=== PATIENT | male | born 1930 | race African-American/Black ===

== ENCOUNTER 2018-03-12 14:27 | Inpatient (IN) | payer MEDICARE, OTHER ==
[~2018-03-12] VITALS: Ht 177.8 cm; Wt 53.2 kg
[~2018-03-12 14:27] MED LIST: FINASTERIDE5 MG ORAL; FLOMAX0.4 MG ORAL; LIPITOR40 MG ORAL; LOPRESSOR HCT1 EAC3 ORAL; NORCO 10-325 T1 EACH ORAL; NORVASC10 MG ORAL; PLAVIX300 MG ORAL; UNOBMED
[2018-03-12 20:00] VITALS: BP 159/82
[2018-03-12] MEDS ORDERED: Zolpidem 5mg tab ORAL PRN (23:30)
[2018-03-12] MEDS ORDERED: LORazepam 1mg tab ORAL PRN (23:30)
[2018-03-12] MEDS: HYDROcodone/Acetamin 10/325 tab ORAL PRN (23:38)
[2018-03-13] VITALS: BP 157/88
[2018-03-13 01:59] LABS: HEMOGLOBIN 7.3 G/DL (14.2-18.0); MEAN CORPUSCULAR VOLUME 83 FL (80-99); PLATELET COUNT 415 K/UL (150-450); RED BLOOD COUNT 2.64 M/UL (4.70-6.10); RED CELL DISTRIBUTION WIDTH 17.3 % (11.6-14.8); WHITE BLOOD COUNT 13.1 K/UL (4.8-10.8)
[2018-03-13 02:32] LABS: ALANINE AMINOTRANSFERASE 16 U/L (12-78); ALBUMIN 1.9 G/DL (3.4-5.0); ALKALINE PHOSPHATASE 134 U/L (46-116); ANION GAP 9 mmol/L (5-15); ASPARTATE AMINO TRANSFERASE 63 U/L (15-37); BILIRUBIN,DIRECT 0.2 MG/DL (0.0-0.3); BILIRUBIN,TOTAL 0.3 MG/DL (0.2-1.0); BLOOD UREA NITROGEN 85 mg/dL (7-18); CALCIUM 8.6 MG/DL (8.5-10.1); CARBON DIOXIDE 23 MMOL/L (21-32); CHLORIDE 104 MMOL/L (98-107); CREATININE 3.9 MG/DL (0.55-1.30); POTASSIUM 5.7 MMOL/L (3.5-5.1); SODIUM 136 MMOL/L (136-145)
[2018-03-13 04:00] VITALS: BP 149/78
[2018-03-13 07:12] LABS: BASOPHILS % (AUTO) 1.1 % (0.0-2.0); EOSINOPHILS % (AUTO) 0.9 % (0.0-3.0); HEMOGLOBIN 8.5 G/DL (14.2-18.0); LYMPHOCYTES % (AUTO) 26.7 % (20.0-45.0); MEAN CORPUSCULAR VOLUME 84 FL (80-99); NEUTROPHILS % (AUTO) 66.3 % (45.0-75.0); PLATELET COUNT 486 K/UL (150-450); RED BLOOD COUNT 2.99 M/UL (4.70-6.10); RED CELL DISTRIBUTION WIDTH 17.1 % (11.6-14.8)
[2018-03-13 07:18] LABS: ANION GAP 11 mmol/L (5-15); BLOOD UREA NITROGEN 85 mg/dL (7-18); CALCIUM 9.2 MG/DL (8.5-10.1); CARBON DIOXIDE 21 MMOL/L (21-32); CHLORIDE 106 MMOL/L (98-107); CREATININE 3.8 MG/DL (0.55-1.30); SODIUM 138 MMOL/L (136-145)
[2018-03-13 07:42] LABS: POTASSIUM 6.4 MMOL/L (3.5-5.1)
[2018-03-13 08:00] VITALS: BP 152/85
[2018-03-13] MEDS: HYDROcodone/Acetamin 10/325 tab ORAL PRN ×3 (09:02→23:26)
[2018-03-13] MEDS: Metoprolol Succinate XL 50mg tab ORAL SCH (09:03)
--- NOTE | 2018-03-13 10:57 | Consultation ---
DATE OF CONSULTATION: 03/12/2018 CARDIOLOGY CONSULTATION CONSULTING PHYSICIAN: Jose Low M.D. REQUESTING PHYSICIAN: Justice Pereira M.D. REASON FOR CONSULTATION: Paroxysmal atrial fibrillation and edema. HISTORY OF PRESENT ILLNESS: This is an 88-year-old male with a longstanding history of hypertensive heart disease and paroxysmal atrial fibrillation. He has done poorly over the past few months with almost a 20-pound weight loss accompanied by increasing fluid retention mostly in the lower half of his body including the abdomen. He has noted some decreasing exercise capacity. No orthopnea, but possible shortness of breath. He has not had chest pain or palpitations. He has been compliant with medications. He was also noted to have abnormal ultrasound revealed nodular densities of his liver and failed to follow up several months ago with a CAT scan requested. I have been asked to assist with further cardiovascular care and volume management. 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 ALLERGIES: None. MEDICATIONS: Reviewed and reconciled. SOCIAL HISTORY: Notable for distant history of alcohol and substance abuse as well as smoking history. FAMILY HISTORY: Noncontributory. REVIEW OF SYSTEMS: Recent echocardiogram revealed normal ejection fraction, concentric hypertrophy, diastolic relaxation abnormality, and minimal degenerative valve disease. Atrial fibrillation has been rate controlled with a beta karla. He has not been on anticoagulation due to prior bleeding per rectum and fall risk. There is no history of seizure or stroke. Diabetes is diet controlled. He does have chronic back and leg pain due to his degenerative disk disease and prior fracture with ester placement. His blood pressure in the past has been labile. There is no history of flow-limiting coronary disease. He has a history of COPD, but has not had any recent exacerbation. There is no history of visual disturbance, retinopathy, or hearing loss. There is no history of prostate cancer. He does have prostatic hypertrophy. His weight loss has been due to poor appetite. No nausea or vomiting. It is noted he was recently found to have some abnormalities on his abdominal ultrasound and was referred for a CAT scan several months ago that has not been performed yet. PHYSICAL EXAMINATION: VITAL SIGNS: Blood pressure 159/82, pulse 92, respirations 20, and afebrile. HEENT: Conjunctivae pink. Arcus senilis. Sclerae anicteric. Oropharynx clear. NECK: Supple. Jugular venous pressure normal. There is temporal wasting. LUNGS: Diminished breath sounds. Chest wall without deformity. CARDIAC: Regular rhythm and rate. Normal S1, S2 with a fourth heart sound. ABDOMEN: Soft, distended. Mild hepatomegaly, mild ascites. EXTREMITIES: With trace dependent edema. Palpable distal pulses. NEUROLOGIC: Nonfocal. SKIN: Intact. LABORATORY DATA: Labs and EKG are pending. IMPRESSION: This is a gentleman with significant weight loss, liver nodularity, and ascites, who presents with failure to respond to outpatient management. Further complicating his history includes type 2 diabetes mellitus, hypertensive heart disease, osteoarthritis and degenerative disk disease, COPD, prostatic hypertrophy with history of urinary retention. PLAN: Recommend hold parameters for antihypertensives. Hold antiplatelets for now in case biopsies required. A CAT scan of the chest, abdomen, and pelvis. Check liver function tests, coagulation parameters, and CBC. Nutritional support. Further recommendations will follow once diagnostic laboratory studies are obtained and EKG is reviewed. Jose Low M.D. DR: ERIKA JOB#: [id number] CC:
[2018-03-13 12:00] VITALS: BP 143/77
[2018-03-13] MEDS ORDERED: Sodium Polystyrene Sulfonate 15gm Powder ORAL SCH (14:09)
[2018-03-13 16:00] VITALS: BP 148/86
--- NOTE | 2018-03-13 16:42 | Diagnostic Imaging Report ---
INDICATION: Abdominal distention, chest pain, atrial fibrillation, fluid retention, decreased exercise capacity TECHNIQUE: No IV contrast, per referring physician request. Patient ingested oral contrast. Spiral acquisitions obtained through the chest, abdomen, and pelvis. Multiplanar reconstructions were generated. Total dose length product 694.5 mGycm. CTDIvol(s) 10.54 mGy. Radiation dose was minimized using automated exposure control COMPARISON: Abdomen and pelvis compared to 03/31/2016. No comparison chest CTs FINDINGS Chest: Lungs demonstrate bullous changes bilaterally, predominantly in the upper lobes, as well as generalized hyperinflation. There is trace pleural fluid on the left. Some focal pleural thickening is seen along the superior aspect of the left major fissure. Some scarring is seen at both lung apices. There is a mass in the left upper lobe which is contiguous with the left heart border. This measures 3.9 x 1.9 x 2.3 cm. There is some peripheral pleural scarring in the right upper lobe. There are reticular opacities in the periphery of the right upper lobe which most likely represent scarring. 4 mm irregular opacity in the right upper lobe is seen on image 43 of series 5. Considerable scarring is seen at the right lung base. 4 mm irregular nodular opacity is seen within the right middle lobe, image 75 of series 5, and a few 10 mm opacities are seen at the right lung base. The heart is enlarged. No definite pericardial effusion. A somewhat prominent but not frankly enlarged node is seen in the pericardial fat adjacent to the proximal left pulmonary hilum. No definite mediastinal or hilar mass or adenopathy otherwise. However, multiple nodules are seen in the left paraspinous posterior mediastinum as well as in the left-sided extrapleural flat and adjacent to the distal descending thoracic aorta. The largest of these masses measures 2.7 cm long axis dimension, is located adjacent to the lower thoracic spine. The right main pulmonary artery is ectatic, measuring 29 mm in diameter. The left main pulmonary artery is also ectatic, measuring 28 mm in diameter. The thyroid is heterogeneous, demonstrates an 9 mm nodule in the left lobe. No axillary or chest wall mass or adenopathy demonstrated. The bones demonstrate degenerative spondylosis changes. Again demonstrated a focal outpouching of the distal esophagus, which contains contrast and air, most likely an epiphrenic diverticulum. There is equivocal thickening of the esophageal wall distal to this. Abdomen pelvis: There is massive dilatation of the left proximal ureter. There is what appears to be a mass occupying or surrounding the mid to distal left ureter which measures 4 cm transverse by 3.7 cm AP by 3.7 cm craniocaudad, not evident previously. However, distal to this, the ureter continues to be dilated, and continues into an area of saccular dilatation, distal to which there appears to be a 2.3 cm mass occupying the lumen. The ureteral dilatation continues into the ureterovesical junction. The bladder is markedly thick-walled. In addition to the massive hydroureter, there is massive hydronephrosis. This is more severe than on the prior exam. There is a 2.5 cm mass adjacent to or arising from the posterior medial left kidney interpolar region. There is evidence of prior TURP. The prostate is considerably smaller than demonstrated previously. Previously demonstrated right hydroureter and hydronephrosis have resolved. In addition to the lesions above-described, there are multiple masses seen throughout the retroperitoneum and peritoneal space. Multiple masses are seen surrounding the right kidney, largest located medially measuring 2.5 cm diameter. Multiple masses are seen medial to the left kidney, largest measuring 4.4 cm long axis dimension. A conglomerate of enlarged retroperitoneal lymph nodes is demonstrated, lateral to the abdominal aorta, measuring 6.5 x 3.6 cm. Numerous masses are seen within the mesenteric root. The extent of the mesenteric involvement is somewhat hard to detail as there are also numerous unopacified small bowel loops which are hard to distinguish from the masses. There is no evidence of small bowel obstruction. Most of the ingested contrast is seen within the colon. There is some residual within the stomach. Contrast is seen as far distally as the distal descending colon. There is trace free intraperitoneal fluid, over the dome of the liver and within the pelvis. There is equivocal wall thickening of the gastric fundus, probably an artifact of under distention. The duodenum is unremarkable. The liver demonstrates multiple low-attenuation masses throughout, measuring up to 7 cm long axis dimension. The gallbladder demonstrates equivocal surrounding edema. No gallstones. No biliary ductal dilatation. The pancreas, spleen are unremarkable. Low-attenuation 2.4 x 1 cm mass is seen in the right adrenal, demonstrating attenuation below 10 Hounsfield units. A large mass is seen either within or adjacent to the left adrenal. The bones are unremarkable except for degenerative spondylosis changes. Impression: Evidence of extensive disseminated neoplasm, located predominantly below the diaphragm. Multiple masses are seen throughout the liver. Multiple nodules and masses are seen throughout the retroperitoneum and mesenteric root, within the pelvis, and in the lower thoracic paraspinal fat and left posterior extrapleural space, as well as possibly the left adrenal. Unsure as to the primary lesion based on the available findings 3.9 x 1.9 x 1 2.3 cm mass in the left lung upper lobe. This could represent a metastatic deposit, but given the absence of other significant pulmonary lesions is likely represent a primary lesion. Massive left hydronephrosis and hydroureter. Likely due to multiple masses which appear to be within the ureteral lumen Since 03/31/2016, interim resolution of previously demonstrated right hydronephrosis Evidence of bullous COPD Other opacities within the lungs, most likely postinflammatory in nature although neoplasm is etiology not completely excludable. Cardiomegaly Ectatic pulmonary arteries, suggestive of although not conclusive for pulmonary tail hypertension 9 mm left thyroid nodule. 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
[2018-03-13 20:00] VITALS: BP 176/85
--- NOTE | 2018-03-13 21:46 | History and Physical Report ---
DATE OF ADMISSION: 03/12/2018 CHIEF COMPLAINT: Failure to thrive, significant weight loss and renal failure. HISTORY OF PRESENT ILLNESS: The patient is an 88-year-old male, well known to me. He has a history of chronic kidney disease, obstructive uropathy, hypertension, hypertensive heart disease, paroxysmal atrial fibrillation over the last several months. He has had nearly 20-30 pounds weight loss. According to the patient, he has had a poor appetite. He notes decreased exercise tolerance. He has had no fevers or chills. Denies any melena. No bright red blood per rectum. No constipation. He saw his cooking chef on the day of admission in light of his significant weight loss. He is now admitted for further evaluation and care. PAST MEDICAL HISTORY: As above. He has a history of diabetes, chronic kidney disease, COPD, GERD, hypertension and hypertensive heart disease. CURRENT MEDICATIONS: Reconciled and reviewed. ALLERGIES: None. FAMILY HISTORY: None. SOCIAL HISTORY: There is no known history of tobacco, ethanol, or drugs. REVIEW OF SYSTEMS: GENERAL: Positive malaise, weakness, or weight loss. HEENT: No headaches or visual changes. CARDIOPULMONARY: No chest pain. No shortness of breath. GASTROINTESTINAL: No nausea or vomiting. GENITOURINARY: No urgency or frequency. MUSCULOSKELETAL: No joint pain or swelling. NEUROLOGIC: No evidence of seizures. PHYSICAL EXAMINATION: GENERAL: The patient is a chronically ill-appearing male. He is cachectic and has some temporal wasting. VITAL SIGNS: Temperature 98 degrees, pulse 87, respirations 20, and blood pressure 150/85. NECK: Supple. There is no adenopathy. HEART: Regular rate and rhythm. LUNGS: Clear. ABDOMEN: Soft, nontender and nondistended. EXTREMITIES: No clubbing, cyanosis, or edema. LABORATORY AND DIAGNOSTIC DATA: Coagulations are normal. White count was 13, hemoglobin 7.3, hematocrit 22 and platelets 415. Sodium 136, potassium 5.7, chloride 104, bicarbonate 23, BUN 85, and creatinine 3.9. TSH was 4.56. CEA and CA-[address] scan of the abdomen and pelvis show an enlarged prostate, bladder outlet obstruction with marked dilation of the urinary bladder, moderate bilateral hydronephrosis, and bilateral adrenal masses. Chest x-ray was clear. MRI of the brain showed only mild atrophy. ASSESSMENT: This is a pleasant male admitted with complaints of failure to thrive, unclear etiology, may be the result of acute on chronic renal failure. He has some hydronephrosis and bladder outlet obstruction, probably likely due to his BPH, anemia, hyperkalemia, hypertension, and atrial fibrillation. PLAN: Insert Garcia catheter. Cautious fluid resuscitation. Cardiology follow up. We will follow up tumor markers. Kayexalate for hyperkalemia. The patient's status is currently guarded. Justice Pereira M.D. DR: MELY JOB#: [id number] CC:
[2018-03-13] MEDS: Tamsulosin 0.4mg cap ORAL SCH (23:26)
[2018-03-14] VITALS: BP 124/86
--- NOTE | 2018-03-14 00:32 | Consultation ---
DATE OF CONSULTATION: 03/13/2018 CONSULTING PHYSICIAN: Shayan Resendiz M.D. REFERRING PHYSICIAN: Jose Low M.D. REASON FOR CONSULTATION: hydronephrosis. HISTORY OF PRESENT ILLNESS: This is an 88-year-old gentleman. He is well known to me from previous evaluations. The patient has history of BPH and history of urinary retention. He has history of chronic renal insufficiency. He does have history of chronic left-sided hydronephrosis. He is status post transurethral resection of prostate, which was performed in August 2016. At that time, the pathology from the resection was negative for cancer. He has been admitted to the hospital because of atrial fibrillation and edema. He was noted to have acute kidney injury, left-sided hydronephrosis, and metastatic adenopathy. Urology evaluation was requested. Apparently, the patient has had some weight loss in the recent past. He has been voiding. PAST MEDICAL HISTORY: Significant for above, also history of coronary artery disease, hypertension, degenerative disk disease, hyperlipidemia, diabetes, osteoarthritis, COPD. PAST SURGICAL HISTORY: As above. CURRENT MEDICATIONS: Here in the hospital, the patient is on Flomax, Proscar, Toprol, Ativan, Zofran, Ambien, [place]. ALLERGIES: No known drug allergies. SOCIAL HISTORY: He is currently nonsmoker. REVIEW OF SYSTEMS: As above. FAMILY HISTORY: Noncontributory. PHYSICAL EXAMINATION: GENERAL: An elderly male. VITAL SIGNS: Temperature is 97.0 degrees, blood pressure is 152/85, pulse 87, respirations 20. HEENT: Normocephalic. NECK: Supple. ABDOMEN: Soft. EXTREMITIES: No clubbing or cyanosis. LABORATORY DATA: BUN is 85, creatinine is 3.8. I believe his baseline creatinine is close to about 3 or so. Potassium 6.4. There is no recent urinalysis. DIAGNOSTIC IMAGING STUDIES: The patient had CT scan of the abdomen and pelvis, there was mention of extensive disseminated neoplasm with masses in the liver, nodules in the retroperitoneum, there was mention of a mass in the left upper lung lobe, there was evidence of massive left-sided hydronephrosis, possible mass in the lumen of the ureter, there was also mention of a right adrenal adenoma. His old imaging was reviewed and there was previous mention of a renal cyst. IMPRESSION: 1. Left-sided hydronephrosis which is chronic. 2. BPH history. 3. Renal insufficiency which appears to be acute on chronic. 4. Renal cyst history. 5. Adrenal adenoma. PLAN AND DISCUSSION: Again, the patient does have left-sided hydronephrosis which he has had in the past. In fact, he had done ultrasound a number of months ago in the office and previous imaging which he had which had shown left-sided hydronephrosis because of his previous bladder outlet obstruction and reflux. There may have been some exacerbation of the hydronephrosis. His renal function will be monitored closely. Apparently, there was a bladder scan that was done earlier, which did not show significant residual urine, however, we can consider placing a Garcai for volume measurement and I's and O's. Again, the patient will be monitored closely. At some point, he may need to have retrograde study. Thank you Dr. Low for asking to see me this patient in consultation. Shayan Resendiz M.D. DR: Abraham JOB#: [id number] CC:
[2018-03-14] MEDS ORDERED: HydrALAZINE 25mg tab ORAL PRN (03:15)
[2018-03-14 04:00] VITALS: BP 129/89
--- NOTE | 2018-03-14 05:31 | Progress Note ---
DATE: 03/13/2018 CARDIOLOGY PROGRESS NOTE SUBJECTIVE: The patient's CT scan was reviewed and discussed with Dr. Pereira and is clearly diagnostic for metastatic carcinoma, primary source remains unclear of the lung and renal sources are most probable. The findings were discussed with the patient. His sensorium is somewhat depressed and he does not seem to respond clearly to my questions. Blood pressure is labile up to 176 systolic at times. The patient has not been voiding well and he has had elevated post void residuals. OBJECTIVE: VITAL SIGNS: Blood pressure 176/85, pulse 85, respirations 20, and afebrile. LUNGS: Few rhonchi. HEENT: Temporal wasting. HEART: Regular rhythm and rate. Normal S1 and S2 with a fourth heart sound. ABDOMEN: Soft. Mild ascites. EXTREMITIES: No edema. LABORATORY DATA: Reviewed. IMPRESSION: 1. Metastatic carcinoma. 2. Metabolic encephalopathy. 3. Hyperkalemia. 4. Acute on chronic kidney injury. 5. Obstructive uropathy. 6. Acute on chronic renal failure. 7. Accelerated hypertension. PLAN: 1. Discontinue benzodiazepine. 2. Check ammonia level. 3. Urology consultation. 4. P.r.n. antihypertensives for blood pressure spikes. 5. Consider needle biopsy if feasible per interventional radiologist. 6. Consider CT imaging of the brain if no other etiology for encephalopathy sounds. We will try to contact family members and we will need to address advanced directives. The patient is able to participate in more meaningfully in such a discussion. Jose Low M.D. : NONA JOB#: [id number] CC:
[2018-03-14 06:48] LABS: HEMATOCRIT 22.5 % (42.0-52.0); HEMOGLOBIN 7.3 G/DL (14.2-18.0); MEAN CORPUSCULAR VOLUME 84 FL (80-99); PLATELET COUNT 407 K/UL (150-450); RED BLOOD COUNT 2.67 M/UL (4.70-6.10); RED CELL DISTRIBUTION WIDTH 17.8 % (11.6-14.8); WHITE BLOOD COUNT 13.1 K/UL (4.8-10.8)
[2018-03-14 07:22] LABS: ALANINE AMINOTRANSFERASE 17 U/L (12-78); ALBUMIN 1.7 G/DL (3.4-5.0); ALBUMIN/GLOBULIN RATIO 0.3 (1.0-2.7); ALKALINE PHOSPHATASE 126 U/L (46-116); ANION GAP 11 mmol/L (5-15); ASPARTATE AMINO TRANSFERASE 62 U/L (15-37); BILIRUBIN,TOTAL 0.2 MG/DL (0.2-1.0); BLOOD UREA NITROGEN 74 mg/dL (7-18); CALCIUM 8.3 MG/DL (8.5-10.1); CARBON DIOXIDE 20 MMOL/L (21-32); CHLORIDE 108 MMOL/L (98-107); CREATININE 3.1 MG/DL (0.55-1.30); POTASSIUM 4.6 MMOL/L (3.5-5.1); SODIUM 139 MMOL/L (136-145)
--- NOTE | 2018-03-14 07:34 | Urology Progress Note ---
Assessment/Plan Assessment/Plan 1. Left-sided hydronephrosis which is chronic. 2. BPH history. 3. Renal insufficiency which appears to be acute on chronic. 4. Renal cyst history. 5. Adrenal adenoma. monitor clinically monitor renal fxn, improved gore indwelling for now films reviewed add abx med/onc eval Subjective Allergies: Coded Allergies: No Known Allergies (Verified , 04/29/09) Subjective all noted, feels fair, gore placed last night, 250 cc residual by report, vague testicular pain Objective Last 24 Hour Vital Signs Date Time Temp Pulse Resp B/P (MAP) Pulse Ox O2 Delivery O2 Flow Rate FiO2 03/14/18 04:00 97.7 96 18 129/89 (102) 94 97.7 03/14/18 00:25 97.0 03/14/18 00:00 97.8 94 18 124/86 (99) 98 97.8 03/13/18 23:26 97.0 03/13/18 21:00 Room Air 03/13/18 20:00 97.0 85 20 176/85 (115) 98 97.0 03/13/18 17:41 97.0 03/13/18 16:00 98.4 88 20 148/86 (106) 97 98.4 03/13/18 12:00 98.2 84 20 143/77 (99) 97 98.2 03/13/18 09:47 Room Air 03/13/18 09:03 87 150/85 03/13/18 09:02 97.0 03/13/18 08:00 97.9 87 20 152/85 (107) 97 97.9 Intake and Output 03/13/18 03/14/18 19:00 07:00 Intake Total 450 ml Output Total 600 ml Balance -150 ml Tube Feeding 450 ml Output Urine Total 600 ml # Voids 4 # Bowel Movements 2 Current Medications Medications (Trade) Dose Ordered Sig/Faizan Route PRN Reason Start Time Stop Time Status Last Admin Dose Admin Acetaminophen/ Hydrocodone Bitart ([place]coe 10/325) 1 tab Q4H PRN ORAL For Pain 03/12/18 23:15 03/19/18 23:14 03/13/18 23:26 Amlodipine Besylate (Norvasc) 5 mg DAILY ORAL 03/14/18 09:00 04/13/18 08:59 Barium Sulfate (Readi-Cat 2) 450 ml NOW PRN ORAL Radiology Procedure 03/13/18 10:15 03/15/18 10:07 Finasteride (Proscar) 5 mg DAILY ORAL 03/13/18 09:00 04/12/18 08:59 03/13/18 09:02 Hydralazine HCl (Apresoline) 25 mg Q6HR PRN ORAL SBP above 160 03/14/18 03:15 04/13/18 03:14 Metoprolol Succinate (Toprol XL) 50 mg DAILY ORAL 03/13/18 09:00 04/12/18 08:59 03/13/18 09:03 Ondansetron HCl (Zofran) 4 mg Q6H PRN IVP Nausea & Vomiting 03/12/18 23:30 04/11/18 23:29 Sodium Chloride 1,000 ml @ 100 mls/hr Q10H IV 03/13/18 03:30 04/12/18 03:29 03/13/18 15:17 Tamsulosin HCl (Flomax) 0.4 mg BEDTIME ORAL 03/13/18 21:00 04/12/18 20:59 03/13/18 23:26 Zolpidem Tartrate (Ambien) 5 mg HSPRN PRN ORAL Insomnia 03/12/18 23:30 03/19/18 23:29 Laboratory Tests 03/14/18 06:20: White Blood Count 13.1H, Red Blood Count 2.67L, Hemoglobin 7.3L, Hematocrit 22.5L, Mean Corpuscular Volume 84, Mean Corpuscular Hemoglobin 27.3, Mean Corpuscular Hemoglobin Concent 32.4, Red Cell Distribution Width 17.8H, Platelet Count 407, Mean Platelet Volume 4.4L, Neutrophils (%) (Auto) , Lymphocytes (%) (Auto) , Monocytes (%) (Auto) , Eosinophils (%) (Auto) , Basophils (%) (Auto) , Neutrophils % (Manual) [Pending], Lymphocytes % (Manual) [Pending], Platelet Estimate [Pending], Platelet Morphology [Pending], Sodium Level 139, Potassium Level 4.6, Chloride Level 108H, Carbon Dioxide Level 20L, Anion Gap 11, Blood Urea Nitrogen 74H, Creatinine 3.1H, Estimat Glomerular Filtration Rate , Glucose Level 103, Calcium Level 8.3L, Total Bilirubin 0.2, Aspartate Amino Transf (AST/SGOT) 62H, Alanine Aminotransferase (ALT/SGPT) 17, Alkaline Phosphatase 126H, Ammonia 24, Total Protein 6.6, Albumin 1.7L, Globulin 4.9, Albumin/Globulin Ratio 0.3L Height (Feet): 5 Height (Inches): 10.00 Weight (Pounds): 117 Objective exam stable, gore indwelling, grossly yellow urine, mild testicular tenderness to palpation ALISON FUENTES Mar 14, 2018 07:34
[2018-03-14 08:00] VITALS: BP 144/90
--- NOTE | 2018-03-14 08:32 | General Progress Note ---
Assessment/Plan Problem List: (1) Anemia ICD Codes: D64.9 - Anemia, unspecified SNOMED: 432249711 (2) Atrial fibrillation ICD Codes: I48.91 - Unspecified atrial fibrillation SNOMED: 67856335 (3) Hyperkalemia ICD Codes: E87.5 - Hyperkalemia SNOMED: 55631483 (4) Renal failure ICD Codes: N19 - Unspecified kidney failure SNOMED: 24546047 Status: stable, progressing Assessment/Plan ivf gore transfuse follow up tumor markers monitor volume status and renal fxn Subjective ROS Limited/Unobtainable: No Constitutional: Reports: malaise, weakness HEENT: Reports: no symptoms Cardiovascular: Reports: no symptoms Respiratory: Reports: no symptoms Gastrointestinal/Abdominal: Reports: no symptoms Genitourinary: Reports: no symptoms Neurologic/Psychiatric: Reports: no symptoms Endocrine: Reports: no symptoms Hematologic/Lymphatic: Reports: anemia Allergies: Coded Allergies: No Known Allergies (Verified , 04/29/09) All Systems: reviewed and negative except above Subjective no events. +gore. Cr rending down. on ivf. decreased h/h noted. no bleeding. Objective Last 24 Hour Vital Signs Date Time Temp Pulse Resp B/P (MAP) Pulse Ox O2 Delivery O2 Flow Rate FiO2 03/14/18 04:00 97.7 96 18 129/89 (102) 94 97.7 03/14/18 00:25 97.0 03/14/18 00:00 97.8 94 18 124/86 (99) 98 97.8 03/13/18 23:26 97.0 03/13/18 21:00 Room Air 03/13/18 20:00 97.0 85 20 176/85 (115) 98 97.0 03/13/18 17:41 97.0 03/13/18 16:00 98.4 88 20 148/86 (106) 97 98.4 03/13/18 12:00 98.2 84 20 143/77 (99) 97 98.2 03/13/18 09:47 Room Air 03/13/18 09:03 87 150/85 03/13/18 09:02 97.0 Intake and Output 03/13/18 03/14/18 19:00 07:00 Intake Total 450 ml Output Total 600 ml Balance -150 ml Tube Feeding 450 ml Output Urine Total 600 ml # Voids 4 # Bowel Movements 2 Laboratory Tests 03/14/18 06:20: White Blood Count 13.1H, Red Blood Count 2.67L, Hemoglobin 7.3L, Hematocrit 22.5L, Mean Corpuscular Volume 84, Mean Corpuscular Hemoglobin 27.3, Mean Corpuscular Hemoglobin Concent 32.4, Red Cell Distribution Width 17.8H, Platelet Count 407, Mean Platelet Volume 4.4L, Neutrophils (%) (Auto) , Lymphocytes (%) (Auto) , Monocytes (%) (Auto) , Eosinophils (%) (Auto) , Basophils (%) (Auto) , Neutrophils % (Manual) [Pending], Lymphocytes % (Manual) [Pending], Platelet Estimate [Pending], Platelet Morphology [Pending], Sodium Level 139, Potassium Level 4.6, Chloride Level 108H, Carbon Dioxide Level 20L, Anion Gap 11, Blood Urea Nitrogen 74H, Creatinine 3.1H, Estimat Glomerular Filtration Rate , Glucose Level 103, Calcium Level 8.3L, Total Bilirubin 0.2, Aspartate Amino Transf (AST/SGOT) 62H, Alanine Aminotransferase (ALT/SGPT) 17, Alkaline Phosphatase 126H, Ammonia 24, Total Protein 6.6, Albumin 1.7L, Globulin 4.9, Albumin/Globulin Ratio 0.3L Height (Feet): 5 Height (Inches): 10.00 Weight (Pounds): 117 General Appearance: WD/WN, alert, thin Neck: supple Cardiovascular: normal rate, regular rhythm Respiratory/Chest: chest wall non-tender, lungs clear, normal breath sounds, no respiratory distress Abdomen: normal bowel sounds, non tender, soft, no organomegaly Edema: no edema noted Arm (L), no edema noted Arm (R), no edema noted Leg (L), no edema noted Leg (R), no edema noted Pedal (L), no edema noted Pedal (R), no edema noted 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
[2018-03-14 08:50] LABS: % IRON SATURATION 16 % (15-50); IRON 27 ug/dL (50-175); TOTAL IRON BINDING CAPACITY 169 ug/dL (250-450)
[2018-03-14] MEDS: Metoprolol Succinate XL 50mg tab ORAL SCH (08:52)
[2018-03-14] MEDS: HYDROcodone/Acetamin 10/325 tab ORAL PRN ×3 (08:53→21:07)
[2018-03-14 12:00] VITALS: BP 158/83
[2018-03-14 16:00] VITALS: BP 149/90
[2018-03-14 20:00] VITALS: BP 139/95
[2018-03-14] MEDS: Iron Sucrose 100 MG in NS 55 ML IVPB SCH (20:35)
[2018-03-14] MEDS: Tamsulosin 0.4mg cap ORAL SCH (21:07)
[2018-03-14] MEDS: Epogen (for non ESRD use) SUBQ SCH (21:08)
[2018-03-15] VITALS (15 sets, daily range): BP systolic 121–184; BP diastolic 72–97
--- NOTE | 2018-03-15 01:00 | Progress Note ---
DATE: 03/14/2018 CARDIOLOGY PROGRESS NOTE SUBJECTIVE: Blood pressure parameters have remained labile. The patient without chest pain or shortness of breath. More alert, less confused, understands findings on CAT scan. Garcia catheter placed. Creatinine improved. He remains on IV fluids. OBJECTIVE: VITAL SIGNS: Blood pressure 129/89, pulse 96, respiratory rate 18. LUNGS: Clear. CARDIAC: Regular rhythm and rate. Normal S1 and S2 with a fourth heart sound. ABDOMEN: Soft with mild ascites. EXTREMITIES: With trace edema. LABORATORY DATA: White count 13.1, hemoglobin 7.3. Potassium 4.6, BUN 74, creatinine 3.1. Iron saturation 16%. Albumin 1.7. CEA and CA 19-9 are pending. Ammonia level is normal. IMPRESSION: 1. Metastatic carcinoma. 2. Anemia. 3. Severe protein-calorie malnutrition. 4. Metabolic acidosis. 5. , corrected. 6. Acute on chronic renal failure with obstructive uropathy. 7. Hypertensive heart disease. 8. Paroxysmal atrial fibrillation. PLAN: 1. Await tumor markers. 2. Continue hydration. 3. Urine drainage by Garcia catheter. 4. Monitor renal parameters. 5. Consider needle biopsy if amenable. 6. DVT prophylaxis. Jose Low M.D. DR: Manny JOB#: [id number] CC:
[2018-03-15] MEDS: HYDROcodone/Acetamin 10/325 tab ORAL PRN ×3 (04:11→22:17)
[2018-03-15 06:52] LABS: BASOPHILS % (AUTO) 0.6 % (0.0-2.0); EOSINOPHILS % (AUTO) 0.2 % (0.0-3.0); HEMATOCRIT 27.8 % (42.0-52.0); HEMOGLOBIN 9.1 G/DL (14.2-18.0); LYMPHOCYTES % (AUTO) 14.1 % (20.0-45.0); MEAN CORPUSCULAR VOLUME 85 FL (80-99); MONOCYTES % (AUTO) 4.6 % (1.0-10.0); NEUTROPHILS % (AUTO) 80.5 % (45.0-75.0); PLATELET COUNT 414 K/UL (150-450); RED BLOOD COUNT 3.29 M/UL (4.70-6.10); WHITE BLOOD COUNT 15.4 K/UL (4.8-10.8)
[2018-03-15 07:33] LABS: ALANINE AMINOTRANSFERASE 29 U/L (12-78); ALBUMIN 1.8 G/DL (3.4-5.0); ALBUMIN/GLOBULIN RATIO 0.3 (1.0-2.7); ALKALINE PHOSPHATASE 147 U/L (46-116); ANION GAP 11 mmol/L (5-15); ASPARTATE AMINO TRANSFERASE 188 U/L (15-37); BILIRUBIN,TOTAL 0.4 MG/DL (0.2-1.0); BLOOD UREA NITROGEN 69 mg/dL (7-18); CARBON DIOXIDE 20 MMOL/L (21-32); CHLORIDE 109 MMOL/L (98-107); POTASSIUM 4.7 MMOL/L (3.5-5.1); SODIUM 140 MMOL/L (136-145)
--- NOTE | 2018-03-15 09:28 | Urology Progress Note ---
Assessment/Plan Assessment/Plan 1. Left-sided hydronephrosis which is chronic. 2. BPH history. 3. Renal insufficiency which appears to be acute on chronic. 4. Renal cyst history. 5. Adrenal adenoma. monitor clinically monitor renal fxn gore indwelling for now cont abx biopsy of lesions for tissue dx med/onc eval at some point d/w Dr. Low Subjective Allergies: Coded Allergies: No Known Allergies (Verified , 04/29/09) Subjective all noted Objective Last 24 Hour Vital Signs Date Time Temp Pulse Resp B/P (MAP) Pulse Ox O2 Delivery O2 Flow Rate FiO2 03/15/18 06:55 98 163/93 (116) 03/15/18 05:51 179/93 03/15/18 05:10 96.8 03/15/18 04:11 96.8 03/15/18 04:00 98.2 87 19 179/93 (121) 93 98.2 03/15/18 00:01 96.8 89 18 153/88 (109) 95 96.8 03/14/18 21:08 Room Air 03/14/18 21:07 98.6 03/14/18 20:00 97.0 108 19 139/95 (110) 96 97.0 03/14/18 16:00 98.6 67 19 149/90 (109) 97 98.6 03/14/18 13:28 98.3 03/14/18 12:00 98.3 90 21 158/83 (108) 97 98.3 Intake and Output 03/14/18 03/15/18 19:00 07:00 Intake Total 960 ml 700 ml Output Total 250 ml 400 ml Balance 710 ml 300 ml Intake Oral 360 ml IV Total 600 ml 700 ml Output Urine Total 250 ml 400 ml Current Medications Medications (Trade) Dose Ordered Sig/Faizan Route PRN Reason Start Time Stop Time Status Last Admin Dose Admin Acetaminophen/ Hydrocodone Bitart ([place] 10/325) 1 tab Q4H PRN ORAL For Pain 03/12/18 23:15 03/19/18 23:14 03/15/18 04:11 Amlodipine Besylate (Norvasc) 5 mg DAILY ORAL 03/14/18 09:00 04/13/18 08:59 03/14/18 08:52 Barium Sulfate (Readi-Cat 2) 450 ml NOW PRN ORAL Radiology Procedure 03/13/18 10:15 03/15/18 10:07 Ciprofloxacin (Cipro 250mg tab) 250 mg Q18H ORAL 03/14/18 17:00 03/21/18 16:59 03/14/18 17:16 Epoetin Robby (Procrit (for non ESRD use)) 5,000 units MON-MON-MON SUBQ 03/14/18 21:00 04/13/18 20:59 03/14/18 21:08 Finasteride (Proscar) 5 mg DAILY ORAL 03/13/18 09:00 04/12/18 08:59 03/14/18 08:52 Hydralazine HCl (Apresoline) 25 mg Q6HR PRN ORAL SBP above 160 03/14/18 03:15 04/13/18 03:14 03/15/18 05:51 Iron Sucrose 100 mg/Sodium Chloride 60 ml @ 240 mls/hr BEDTIME IVPB 03/14/18 21:00 03/18/18 21:14 Metoprolol Succinate (Toprol XL) 50 mg DAILY ORAL 03/13/18 09:00 04/12/18 08:59 03/14/18 08:52 Ondansetron HCl (Zofran) 4 mg Q6H PRN IVP Nausea & Vomiting 03/12/18 23:30 04/11/18 23:29 Sodium Chloride 1,000 ml @ 100 mls/hr Q10H IV 03/13/18 03:30 04/12/18 03:29 03/14/18 23:13 Tamsulosin HCl (Flomax) 0.4 mg BEDTIME ORAL 03/13/18 21:00 04/12/18 20:59 03/14/18 21:07 Zolpidem Tartrate (Ambien) 5 mg HSPRN PRN ORAL Insomnia 03/12/18 23:30 03/19/18 23:29 Laboratory Tests 03/15/18 05:45: White Blood Count 15.4H, Red Blood Count 3.29L, Hemoglobin 9.1L, Hematocrit 27.8L, Mean Corpuscular Volume 85, Mean Corpuscular Hemoglobin 27.8, Mean Corpuscular Hemoglobin Concent 32.9, Red Cell Distribution Width 17.0H, Platelet Count 414, Mean Platelet Volume 4.4L, Neutrophils (%) (Auto) 80.5H, Lymphocytes (%) (Auto) 14.1L, Monocytes (%) (Auto) 4.6, Eosinophils (%) (Auto) 0.2, Basophils (%) (Auto) 0.6, Prothrombin Time 10.8, Prothromb Time International Ratio 1.0, Activated Partial Thromboplast Time 27, Sodium Level 140, Potassium Level 4.7, Chloride Level 109H, Carbon Dioxide Level 20L, Anion Gap 11, Blood Urea Nitrogen 69H, Creatinine 3.0H, Estimat Glomerular Filtration Rate , Glucose Level 117H, Calcium Level 9.0, Total Bilirubin 0.4, Aspartate Amino Transf (AST/SGOT) 188H, Alanine Aminotransferase (ALT/SGPT) 29, Alkaline Phosphatase 147H, Pro-B-Type Natriuretic Peptide 8984H, Total Protein 7.2, Albumin 1.8L, Globulin 5.4, Albumin/Globulin Ratio 0.3L Height (Feet): 5 Height (Inches): 10.00 Weight (Pounds): 117 Objective exam stable, gore indwelling, grossly prema BAMSHAD,ALISON Mar 15, 2018 09:28
--- NOTE | 2018-03-15 09:52 | Pre-Procedure Note/Attestation ---
Pre-Procedure Note/Attestation Complete Prior to Procedure Planned Procedure: not applicable Procedure Narrative: US guided liver biopsy Indications for Procedure Pre-Operative Diagnosis: liver mass Attestation I attest that I discussed the nature of the procedure; its benefits; risks and complications; and alternatives (and the risks and benefits of such alternatives ), prior to the procedure, with the patient (or the patient's legal billing representative). I attest that, if there was a reasonable possibility of needing a blood transfusion, the patient (or the patient's legal billing representative) was given the [facility] standardized written summary, pursuant to the Antonio Henry Blood Safety Act ([place] Health and Safety Code # 1645, as amended). I attest that I re-evaluated the patient just prior to the surgery and that there has been no change in the patient's H&P, except as documented below: Dionisio Sweeney MD Mar 15, 2018 09:52
--- NOTE | 2018-03-15 10:18 | Diagnostic Imaging Report ---
Indication: Altered mental status Technique: spiral acquisitions obtained through the brain. Angled axial and coronal 5 x 5 mm slices were reconstructed. No IV contrast utilized. Radiation dose was minimized using automated exposure control Total dose length product 1362.01 mGycm. CTDIvol(s) 70.38 mGy Comparison: Brain MRI dated 09/29/2015 FINDINGS: No acute hemorrhage or edema. No mass effect or midline shift. There is age-related enlargement of the ventricles and extra axial CSF spaces. There is periventricular deep white matter ischemic change. Normal jo-white differentiation. Visualized orbits are unremarkable. Visualized sinuses are unremarkable. Intact calvarium. 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 Foci of low attenuation in the brainstem are probably artifactual, but small old lacunar infarcts are not excludable. The mastoids are clear IMPRESSION: Chronic and age-related changes. Negative for acute intracranial bleed or mass effect The CT scanner at [facility] is accredited by the [employer] and the scans are performed using protocols designed to limit radiation exposure to as low as reasonably achievable to attain images of sufficient resolution adequate for diagnostic evaluation
--- NOTE | 2018-03-15 10:36 | Brief Operative Note ---
Immediate Post Operative Note Operative Note Pre-op Diagnosis: liver mass Procedure: US guided liver biopsy Post-op Diagnosis: same as pre-op Surgeon: Delilah SWEENEY Anesthesia: local Specimen: yes - 3 18 guage cores Complications: none Condition: stable Fluids: none Implant(s) used?: No Dionisio Sweeney MD Mar 15, 2018 10:36
[2018-03-15] MEDS: Metoprolol Succinate XL 50mg tab ORAL SCH (11:27)
--- NOTE | 2018-03-15 15:58 | Diagnostic Imaging Report ---
Indication: Tachycardia status post liver biopsy Technique: Spiral acquisitions obtained through the abdomen and pelvis. No oral contrast utilized, per nature the exam. No IV contrast utilized, no history of renal insufficiency.. Multiplanar reconstructions were generated. Total dose length product 499.56 mGycm. CTDIvol(s) 9.44 mGy. Dose reduction achieved using automated exposure control Comparison: Findings: A few small gas bubbles are seen within the liver capsule and within the midline subcutaneous fat, presumably related to the recent liver biopsy. No evidence of perihepatic or subcapsular hematoma demonstrated. No evidence of bowel perforation demonstrated. A small amount of perihepatic ascites and perisplenic ascites persists, may be minimally increased. There is a small amount of free fluid in the pelvis which is increased from the prior study. As previously, innumerable hypoattenuating masses are seen occupying most of the liver parenchyma masses are seen throughout the retroperitoneum, retrocrural space, posterior medial extrapleural space on the left, and mesentery, also reported previously and unchanged. Necrotic appearing left-sided pelvic mass is again demonstrated. There has been interim placement of a Garcia catheter. The bladder is now decompressed. It demonstrates wall thickening. The prostate is enlarged Again demonstrated is colonic diverticulosis. No evidence of diverticulitis. And within the few small gas bubbles related to prior biopsy, no free or loculated intraperitoneal gas is demonstrated. The distal esophagus again demonstrates a focal outpouching. The stomach and duodenum are grossly unremarkable. Contrast from prior CT scan is seen within the colon. Lack of IV contrast limits assessment of the other solid organs. The gallbladder is distended, more so than on the prior study. No biliary ductal dilatation. The pancreas and spleen are unremarkable. Possible adenoma is again demonstrated in the right adrenal. Left adrenal mass versus adjacent mass/adenopathy is again demonstrated. Again demonstrated is mild atrophy of the right kidney and mild right hydronephrosis. Again demonstrated is massive left hydronephrosis with masses either within or compressing the left ureter. There is interim marked increase in the amount of pleural fluid bilaterally, more fluid on the left on the right. There is compressive atelectatic change of significant portions of both lower lobes. There is trace pericardial fluid versus thickening. The heart size is upper limits of normal. Impression: No evidence of intraperitoneal or perihepatic hematoma or other evidence of complication related to recent liver biopsy. Slightly increased ascites fluid, since prior study of 2 days earlier Considerably increased pleural fluid bilaterally, left greater than right, over 2 days. Resultant compressive atelectatic change noted Other stable findings as described above and reported previously The CT scanner at [facility] is accredited by the [employer] and the scans are performed using protocols designed to limit radiation exposure to as low as reasonably achievable to attain images of sufficient resolution adequate for diagnostic evaluation.
--- NOTE | 2018-03-15 17:40 | General Progress Note ---
Assessment/Plan Problem List: (1) Anemia ICD Codes: D64.9 - Anemia, unspecified SNOMED: 079886975 (2) Atrial fibrillation ICD Codes: I48.91 - Unspecified atrial fibrillation SNOMED: 72034474 (3) Hyperkalemia ICD Codes: E87.5 - Hyperkalemia SNOMED: 23723004 (4) Renal failure ICD Codes: N19 - Unspecified kidney failure SNOMED: 36340254 Status: stable Assessment/Plan ivf with cautions gore transfuse as need follow up tumor markers monitor volume status and renal fxn check echo and duplex repeat labs in am check trop may need thoracentesis Subjective ROS Limited/Unobtainable: No Constitutional: Reports: malaise, weakness HEENT: Reports: no symptoms Cardiovascular: Reports: no symptoms Respiratory: Reports: no symptoms Gastrointestinal/Abdominal: Reports: no symptoms Genitourinary: Reports: no symptoms Neurologic/Psychiatric: Reports: no symptoms Endocrine: Reports: no symptoms Hematologic/Lymphatic: Reports: anemia Allergies: Coded Allergies: No Known Allergies (Verified , 04/29/09) All Systems: reviewed and negative except above Subjective gu noted. +gore. renal fxn stable. no cp/sob. elevated HR Objective Last 24 Hour Vital Signs Date Time Temp Pulse Resp B/P (MAP) Pulse Ox O2 Delivery O2 Flow Rate FiO2 03/15/18 14:32 139 122/78 (93) 98 03/15/18 14:06 98.2 141 121/77 (92) 98 98.2 03/15/18 13:15 149 129/82 (98) 95 03/15/18 11:27 110 160/92 03/15/18 11:25 110 160/92 03/15/18 11:20 97.5 110 160/92 (114) 95 97.5 03/15/18 10:30 111 20 176/97 (123) 97 03/15/18 10:25 105 20 175/97 (123) 97 03/15/18 10:20 108 20 184/85 (118) 97 03/15/18 10:03 110 18 03/15/18 09:00 Room Air 03/15/18 08:00 98.7 99 182/93 (122) 98.7 03/15/18 06:55 98 163/93 (116) 03/15/18 05:51 179/93 03/15/18 05:10 96.8 03/15/18 04:11 96.8 03/15/18 04:00 98.2 87 19 179/93 (121) 93 98.2 03/15/18 00:01 96.8 89 18 153/88 (109) 95 96.8 03/14/18 21:08 Room Air 03/14/18 21:07 98.6 03/14/18 20:00 97.0 108 19 139/95 (110) 96 97.0 Intake and Output 03/14/18 03/15/18 19:00 07:00 Intake Total 960 ml 700 ml Output Total 250 ml 400 ml Balance 710 ml 300 ml Intake Oral 360 ml IV Total 600 ml 700 ml Output Urine Total 250 ml 400 ml Laboratory Tests 03/15/18 05:45: White Blood Count 15.4H, Red Blood Count 3.29L, Hemoglobin 9.1L, Hematocrit 27.8L, Mean Corpuscular Volume 85, Mean Corpuscular Hemoglobin 27.8, Mean Corpuscular Hemoglobin Concent 32.9, Red Cell Distribution Width 17.0H, Platelet Count 414, Mean Platelet Volume 4.4L, Neutrophils (%) (Auto) 80.5H, Lymphocytes (%) (Auto) 14.1L, Monocytes (%) (Auto) 4.6, Eosinophils (%) (Auto) 0.2, Basophils (%) (Auto) 0.6, Prothrombin Time 10.8, Prothromb Time International Ratio 1.0, Activated Partial Thromboplast Time 27, Sodium Level 140, Potassium Level 4.7, Chloride Level 109H, Carbon Dioxide Level 20L, Anion Gap 11, Blood Urea Nitrogen 69H, Creatinine 3.0H, Estimat Glomerular Filtration Rate , Glucose Level 117H, Calcium Level 9.0, Total Bilirubin 0.4, Aspartate Amino Transf (AST/SGOT) 188H, Alanine Aminotransferase (ALT/SGPT) 29, Alkaline Phosphatase 147H, Pro-B-Type Natriuretic Peptide 8984H, Total Protein 7.2, Albumin 1.8L, Globulin 5.4, Albumin/Globulin Ratio 0.3L Height (Feet): 5 Height (Inches): 10.00 Weight (Pounds): 117 Objective General Appearance: WD/WN, alert, thin Neck: supple Cardiovascular: normal rate, regular rhythm Respiratory/Chest: chest wall non-tender, lungs clear, normal breath sounds, no respiratory distress Abdomen: normal bowel sounds, non tender, soft, no organomegaly Edema: no edema noted Arm (L), no edema noted Arm (R), no edema noted Leg (L), no edema noted Leg (R), no edema noted Pedal (L), no edema noted Pedal (R), no edema noted 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
[2018-03-15] MEDS: Iron Sucrose 100 MG in NS 55 ML IVPB SCH (21:02)
[2018-03-15] MEDS: Tamsulosin 0.4mg cap ORAL SCH (21:02)
[2018-03-16] VITALS: BP 152/70
--- NOTE | 2018-03-16 02:45 | Progress Note ---
DATE: 03/15/2018 CARDIOLOGY PROGRESS NOTE SUBJECTIVE: The patient underwent liver biopsy today without complications. He has an indwelling Garcia catheter. The patient has had episodes of tachycardia up to 140. The patient also received packed red blood cell transfusion yesterday. PHYSICAL EXAMINATION: VITAL SIGNS: His blood pressure is still labile at times up to 160/92. LUNGS: Coarse breath sounds. Scattered rhonchi. HEART: Regular rhythm rate. Normal S1 and S2. ABDOMEN: Soft, tender in the right quadrant. EXTREMITIES: Trace edema. LABORATORY AND DIAGNOSTIC DATA: White count 15 and hemoglobin 9. BUN 69 and creatinine 3. Pro-natriuretic peptide 8900. Albumin 1.8. IMPRESSION: 1. Metastatic carcinoma, primary unclear. 2. Acute on chronic renal failure. 3. Secondary sinus tachycardia. 4. Paroxysmal atrial fibrillation. 5. Hypertensive urgency. 6. Acute on chronic diastolic congestive heart failure. 7. Severe protein-calorie malnutrition. 8. Anemia. PLAN: 1. Empiric antibiotics. 2. Transfuse for hemoglobin less than 7.5 g. 3. Await biopsy results. 4. IV fluid hydration. 5. DVT prophylaxis. 6. Respiratory hygiene. 7. I have spoken with the patient's needs, fluids made aware of the diagnostic concern in this patient probable grave prognosis. 8. Once biopsy results are available, final decisions will be made regarding long-term care and advanced directives. Jose Low M.D. DR: GAGANDEEP JOB#: [id number] CC:
[2018-03-16 04:00] VITALS: BP 139/81
[2018-03-16] MEDS: HYDROcodone/Acetamin 10/325 tab ORAL PRN ×2 (06:30→18:27)
[2018-03-16 08:00] VITALS: BP 132/74
[2018-03-16 08:00] LABS: ALANINE AMINOTRANSFERASE 30 U/L (12-78); ALBUMIN 1.6 G/DL (3.4-5.0); ALBUMIN/GLOBULIN RATIO 0.4 (1.0-2.7); ALKALINE PHOSPHATASE 131 U/L (46-116); ANION GAP 13 mmol/L (5-15); ASPARTATE AMINO TRANSFERASE 204 U/L (15-37); BILIRUBIN,TOTAL 0.3 MG/DL (0.2-1.0); BLOOD UREA NITROGEN 66 mg/dL (7-18); CALCIUM 8.3 MG/DL (8.5-10.1); CARBON DIOXIDE 17 MMOL/L (21-32); CHLORIDE 111 MMOL/L (98-107); POTASSIUM 5.1 MMOL/L (3.5-5.1); SODIUM 141 MMOL/L (136-145)
--- NOTE | 2018-03-16 08:31 | Diagnostic Imaging Report ---
Indication: Chest pain Technique: One view of the chest Comparison: 03/31/2016 Findings: Interim development of left greater than right pleural effusions, also evident on previous day's abdomen CT scan. There is equivocal minimal interstitial congestion as well. The heart size is upper limits of normal. Aorta is tortuous and ectatic. Impression: Bilateral small left greater than right pleural effusions, also described on previous abdomen pelvis CT Equivocal minimal interstitial congestive change-correlate with clinical findings
--- NOTE | 2018-03-16 08:47 | Urology Progress Note ---
Assessment/Plan Assessment/Plan 1. Left-sided hydronephrosis which is chronic. 2. BPH history. 3. Renal insufficiency which appears to be acute on chronic. 4. Renal cyst history. 5. Adrenal adenoma. monitor clinically monitor renal fxn gore indwelling for now cont abx f/u on bx path med/onc eval at some point d/w Dr. Low Subjective Allergies: Coded Allergies: No Known Allergies (Verified , 04/29/09) Subjective all noted, s/p bx of liver met Objective Last 24 Hour Vital Signs Date Time Temp Pulse Resp B/P (MAP) Pulse Ox O2 Delivery O2 Flow Rate FiO2 03/16/18 04:00 98.4 90 20 139/81 (100) 95 98.4 03/16/18 00:00 97.2 79 20 152/70 (97) 98 97.2 03/15/18 21:00 Room Air 03/15/18 20:00 98.5 95 20 149/81 (103) 94 98.5 03/15/18 18:59 112 144/78 (100) 95 03/15/18 16:00 98.2 144 19 134/77 (96) 95 98.2 03/15/18 14:32 139 122/78 (93) 98 03/15/18 14:06 98.2 141 121/77 (92) 98 98.2 03/15/18 13:15 149 129/82 (98) 95 03/15/18 11:27 110 160/92 03/15/18 11:25 110 160/92 03/15/18 11:20 97.5 110 160/92 (114) 95 97.5 03/15/18 10:30 111 20 176/97 (123) 97 03/15/18 10:25 105 20 175/97 (123) 97 03/15/18 10:20 108 20 184/85 (118) 97 03/15/18 10:03 110 18 03/15/18 09:00 Room Air Intake and Output 03/15/18 03/16/18 19:00 07:00 Intake Total 600 ml 1110 ml Output Total 300 ml Balance 600 ml 810 ml Intake Oral 250 ml IV Total 600 ml 860 ml Output Urine Total 300 ml # Bowel Movements 1 Current Medications Medications (Trade) Dose Ordered Sig/Faizan Route PRN Reason Start Time Stop Time Status Last Admin Dose Admin Acetaminophen/ Hydrocodone Bitart ([place] 10/325) 1 tab Q4H PRN ORAL For Pain 03/12/18 23:15 03/19/18 23:14 03/16/18 06:30 Amlodipine Besylate (Norvasc) 5 mg DAILY ORAL 03/14/18 09:00 04/13/18 08:59 03/15/18 11:25 Ciprofloxacin (Cipro 250mg tab) 250 mg Q18H ORAL 03/14/18 17:00 03/21/18 16:59 03/16/18 05:06 Epoetin Robby (Procrit (for non ESRD use)) 5,000 units MON-MON-MON SUBQ 03/14/18 21:00 04/13/18 20:59 03/14/18 21:08 Finasteride (Proscar) 5 mg DAILY ORAL 03/13/18 09:00 04/12/18 08:59 03/15/18 11:26 Hydralazine HCl (Apresoline) 25 mg Q6HR PRN ORAL SBP above 160 03/14/18 03:15 04/13/18 03:14 03/15/18 05:51 Iron Sucrose 100 mg/Sodium Chloride 60 ml @ 240 mls/hr BEDTIME IVPB 03/14/18 21:00 03/18/18 21:14 03/15/18 21:02 Metoprolol Succinate (Toprol XL) 50 mg DAILY ORAL 03/13/18 09:00 04/12/18 08:59 03/15/18 11:27 Ondansetron HCl (Zofran) 4 mg Q6H PRN IVP Nausea & Vomiting 03/12/18 23:30 04/11/18 23:29 Sodium Chloride 1,000 ml @ 100 mls/hr Q10H IV 03/13/18 03:30 04/12/18 03:29 03/16/18 00:40 Tamsulosin HCl (Flomax) 0.4 mg BEDTIME ORAL 03/13/18 21:00 04/12/18 20:59 03/15/18 21:02 Zolpidem Tartrate (Ambien) 5 mg HSPRN PRN ORAL Insomnia 03/12/18 23:30 03/19/18 23:29 Laboratory Tests 03/16/18 05:20: Sodium Level 141, Potassium Level 5.1, Chloride Level 111H, Carbon Dioxide Level 17L, Anion Gap 13, Blood Urea Nitrogen 66H, Creatinine 3.0H, Estimat Glomerular Filtration Rate , Glucose Level 99, Calcium Level 8.3L, Total Bilirubin 0.3, Aspartate Amino Transf (AST/SGOT) 204H, Alanine Aminotransferase (ALT/SGPT) 30, Alkaline Phosphatase 131H, Troponin I 0.049, Total Protein 6.0L, Albumin 1.6L, Globulin 4.4, Albumin/Globulin Ratio 0.4L Height (Feet): 5 Height (Inches): 10.00 Weight (Pounds): 117 Objective exam stable, gore indwelling, grossly prema BAMSHAD,ALISON Mar 16, 2018 08:47
[2018-03-16] MEDS: Metoprolol Succinate XL 50mg tab ORAL SCH (08:56)
[2018-03-16 12:00] VITALS: BP 142/81
[2018-03-16 16:00] VITALS: BP 133/70
[2018-03-16] MEDS ORDERED: Tubing IV Secondary IV ONE (16:08)
--- NOTE | 2018-03-16 16:17 | General Progress Note ---
Assessment/Plan Problem List: (1) Anemia ICD Codes: D64.9 - Anemia, unspecified SNOMED: 911909030 (2) Atrial fibrillation ICD Codes: I48.91 - Unspecified atrial fibrillation SNOMED: 16417329 (3) Hyperkalemia ICD Codes: E87.5 - Hyperkalemia SNOMED: 78288256 (4) Renal failure ICD Codes: N19 - Unspecified kidney failure SNOMED: 56131886 Status: stable, progressing Assessment/Plan ivf with caution gore transfuse as need follow up tumor markers follow up liver biopsy monitor volume status and renal fxn check echo repeat labs in am check trop Subjective ROS Limited/Unobtainable: No Constitutional: Reports: malaise, weakness HEENT: Reports: no symptoms Cardiovascular: Reports: no symptoms Respiratory: Reports: no symptoms Gastrointestinal/Abdominal: Reports: abdomen distended Genitourinary: Reports: no symptoms Neurologic/Psychiatric: Reports: no symptoms Endocrine: Reports: no symptoms Hematologic/Lymphatic: Reports: anemia Allergies: Coded Allergies: No Known Allergies (Verified , 04/29/09) All Systems: reviewed and negative except above Subjective gu noted. +gore. renal fxn stable. no cp/sob. HR better. no new complaints. xray completed- small bilateral effusions. duplex with no dvt. no results. Objective Last 24 Hour Vital Signs Date Time Temp Pulse Resp B/P (MAP) Pulse Ox O2 Delivery O2 Flow Rate FiO2 03/16/18 09:00 Room Air 03/16/18 08:56 90 132/74 03/16/18 08:56 90 132/74 03/16/18 08:00 98.0 90 18 132/74 (93) 96 98.0 03/16/18 04:00 98.4 90 20 139/81 (100) 95 98.4 03/16/18 00:00 97.2 79 20 152/70 (97) 98 97.2 03/15/18 21:00 Room Air 03/15/18 20:00 98.5 95 20 149/81 (103) 94 98.5 03/15/18 18:59 112 144/78 (100) 95 Intake and Output 03/15/18 03/16/18 19:00 07:00 Intake Total 600 ml 1110 ml Output Total 300 ml Balance 600 ml 810 ml Intake Oral 250 ml IV Total 600 ml 860 ml Output Urine Total 300 ml # Bowel Movements 1 Laboratory Tests 03/16/18 05:20: Sodium Level 141, Potassium Level 5.1, Chloride Level 111H, Carbon Dioxide Level 17L, Anion Gap 13, Blood Urea Nitrogen 66H, Creatinine 3.0H, Estimat Glomerular Filtration Rate , Glucose Level 99, Calcium Level 8.3L, Total Bilirubin 0.3, Aspartate Amino Transf (AST/SGOT) 204H, Alanine Aminotransferase (ALT/SGPT) 30, Alkaline Phosphatase 131H, Troponin I 0.049, Total Protein 6.0L, Albumin 1.6L, Globulin 4.4, Albumin/Globulin Ratio 0.4L Height (Feet): 5 Height (Inches): 10.00 Weight (Pounds): 117 Objective General Appearance: WD/WN, alert, thin Neck: supple Cardiovascular: normal rate, regular rhythm Respiratory/Chest: chest wall non-tender, lungs clear, normal breath sounds, no respiratory distress Abdomen: normal bowel sounds, non tender, soft, no organomegaly Edema: no edema noted Arm (L), no edema noted Arm (R), no edema noted Leg (L), no edema noted Leg (R), no edema noted Pedal (L), no edema noted Pedal (R), no edema noted Generalized Neurologic: 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
[2018-03-16 20:00] VITALS: BP 137/77
[2018-03-16] MEDS: Iron Sucrose 100 MG in NS 55 ML IVPB SCH (20:37)
[2018-03-16] MEDS: Tamsulosin 0.4mg cap ORAL SCH (20:41)
[2018-03-16] MEDS: Epogen (for non ESRD use) SUBQ SCH (20:59)
[2018-03-17] VITALS (7 sets, daily range): BP systolic 124–153; BP diastolic 78–97
--- NOTE | 2018-03-17 00:45 | Progress Note ---
DATE: 03/16/2018 CARDIOLOGY PROGRESS NOTE SUBJECTIVE: The patient has a Garcia catheter in place. He is more comfortable today with less shortness of breath. Tachycardia has resolved. He received a transfusion of packed red blood cells yesterday. OBJECTIVE: VITAL SIGNS: Blood pressure 132/74, pulse 90, respirations 18. LUNGS: Diminished breath sounds. Few rhonchi. CARDIAC: Regular rhythm and rate. Normal S1, S2. ABDOMEN: Soft, no edema. LABORATORY AND DIAGNOSTIC DATA: Troponin negative. BUN 66, creatinine 3, albumin 1.6. Pro-natriuretic peptide 8900. Chest x-ray reveals small pleural effusion and mild pulmonary venous congestion. IMPRESSION: 1. Metastatic carcinoma, unknown primary status post liver biopsy. 2. Acute on chronic diastolic congestive heart failure. 3. Hypertensive heart disease. 4. Secondary sinus tachycardia, resolved. 5. Anemia. 6. Chronic obstructive pulmonary disease. 7. Acute on chronic renal failure. 8. Obstructive uropathy, now with Garcia catheter. PLAN: 1. Await biopsy results. 2. Continue beta-karla. 3. Monitor hemoglobin and transfuse if less than 7 grams. 4. Continue Garcia catheter. 5. We will reassess for diuresis, although the patient may mobilize edema with better heart rate control and oxygen carrying capacity. Jose Low M.D. DR: ANGEL JOB#: [id number] CC:
[2018-03-17] MEDS: HYDROcodone/Acetamin 10/325 tab ORAL PRN ×3 (03:03→16:13)
[2018-03-17] MEDS ORDERED: Metoprolol Succinate XL 50mg tab ORAL ONE (08:00)
[2018-03-17] MEDS: Metoprolol Succinate XL 50mg tab ORAL SCH (08:07)
--- NOTE | 2018-03-17 09:10 | Urology Progress Note ---
Assessment/Plan Assessment/Plan 1. Left-sided hydronephrosis which is chronic. 2. BPH history. 3. Renal insufficiency which appears to be acute on chronic. 4. Renal cyst history. 5. Adrenal adenoma. monitor clinically monitor renal fxn gore indwelling for now cont abx f/u on bx path med/onc eval at some point cysto later Subjective Allergies: Coded Allergies: No Known Allergies (Verified , 04/29/09) Subjective all noted, feels fair, some tachy Objective Last 24 Hour Vital Signs Date Time Temp Pulse Resp B/P (MAP) Pulse Ox O2 Delivery O2 Flow Rate FiO2 03/17/18 08:15 Nasal Cannula 2.0 03/17/18 08:07 101 132/81 03/17/18 08:07 63 135/97 03/17/18 08:05 97.2 03/17/18 08:00 98.2 63 21 135/97 (110) 95 98.2 03/17/18 08:00 98.2 63 21 135/97 (110) 95 98.2 03/17/18 07:06 97.2 03/17/18 04:15 101 03/17/18 04:00 98.2 142 22 132/81 (98) 96 98.2 03/17/18 03:03 97.2 03/17/18 00:00 97.2 93 18 153/83 (106) 96 97.2 03/16/18 21:30 Room Air 03/16/18 20:00 99.2 93 18 137/77 (97) 96 99.2 03/16/18 18:27 98.2 03/16/18 16:00 98.2 89 22 133/70 (91) 96 98.2 03/16/18 12:00 97.2 89 20 142/81 (101) 93 97.2 Intake and Output 03/16/18 03/17/18 19:00 07:00 Intake Total 2050 ml 1240 ml Output Total 350 ml 350 ml Balance 1700 ml 890 ml Intake Oral 1050 ml 180 ml IV Total 1000 ml 1060 ml Output Urine Total 350 ml 350 ml Current Medications Medications (Trade) Dose Ordered Sig/Faizan Route PRN Reason Start Time Stop Time Status Last Admin Dose Admin Acetaminophen/ Hydrocodone Bitart ([place] 10/325) 1 tab Q4H PRN ORAL For Pain 03/12/18 23:15 03/19/18 23:14 03/17/18 07:06 Amlodipine Besylate (Norvasc) 5 mg DAILY ORAL 03/14/18 09:00 04/13/18 08:59 03/17/18 08:07 Ciprofloxacin (Cipro 250mg tab) 250 mg Q18H ORAL 03/14/18 17:00 03/21/18 16:59 03/16/18 23:42 Epoetin Robby (Procrit (for non ESRD use)) 5,000 units MON-MON-MON SUBQ 03/14/18 21:00 04/13/18 20:59 03/16/18 20:59 Finasteride (Proscar) 5 mg DAILY ORAL 03/13/18 09:00 04/12/18 08:59 03/17/18 08:06 Hydralazine HCl (Apresoline) 25 mg Q6HR PRN ORAL SBP above 160 03/14/18 03:15 04/13/18 03:14 03/15/18 05:51 Iron Sucrose 100 mg/Sodium Chloride 60 ml @ 240 mls/hr BEDTIME IVPB 03/14/18 21:00 03/18/18 21:14 03/16/18 20:37 Metoprolol Succinate (Toprol XL) 50 mg DAILY ORAL 03/13/18 09:00 04/12/18 08:59 03/17/18 08:07 Ondansetron HCl (Zofran) 4 mg Q6H PRN IVP Nausea & Vomiting 03/12/18 23:30 04/11/18 23:29 Sodium Chloride 1,000 ml @ 100 mls/hr Q10H IV 03/13/18 03:30 04/12/18 03:29 03/17/18 07:04 Tamsulosin HCl (Flomax) 0.4 mg BEDTIME ORAL 03/13/18 21:00 04/12/18 20:59 03/16/18 20:41 Zolpidem Tartrate (Ambien) 5 mg HSPRN PRN ORAL Insomnia 03/12/18 23:30 03/19/18 23:29 Height (Feet): 5 Height (Inches): 10.00 Weight (Pounds): 117 Objective exam stable, gore indwelling, grossly prema BAMSHAD,ALISON Mar 17, 2018 09:10
[2018-03-17] MEDS ORDERED: HydrALAZINE 25mg tab ORAL PRN (10:00)
--- NOTE | 2018-03-17 11:57 | General Progress Note ---
Assessment/Plan Problem List: (1) Anemia ICD Codes: D64.9 - Anemia, unspecified SNOMED: 528884798 (2) Atrial fibrillation ICD Codes: I48.91 - Unspecified atrial fibrillation SNOMED: 34071609 (3) Hyperkalemia ICD Codes: E87.5 - Hyperkalemia SNOMED: 11103944 (4) Renal failure ICD Codes: N19 - Unspecified kidney failure SNOMED: 82041025 Status: stable, progressing Assessment/Plan ivf with caution gore transfuse as need follow up tumor markers follow up liver biopsy monitor volume status and renal fxn check echo added cardizem consider v/q Subjective ROS Limited/Unobtainable: No Constitutional: Reports: malaise, weakness HEENT: Reports: no symptoms Cardiovascular: Reports: no symptoms Respiratory: Reports: shortness of breath Gastrointestinal/Abdominal: Reports: no symptoms Genitourinary: Reports: no symptoms Neurologic/Psychiatric: Reports: no symptoms Endocrine: Reports: no symptoms Hematologic/Lymphatic: Reports: no symptoms Allergies: Coded Allergies: No Known Allergies (Verified , 04/29/09) All Systems: reviewed and negative except above Subjective tachycardic again this am. 130s. +sob. no chest pain. duplex negative for dvt. Objective Last 24 Hour Vital Signs Date Time Temp Pulse Resp B/P (MAP) Pulse Ox O2 Delivery O2 Flow Rate FiO2 03/17/18 11:40 136 149/93 03/17/18 11:34 97.6 136 20 149/93 (111) 98 97.6 03/17/18 09:50 97.7 127 20 124/90 (101) 98 97.7 03/17/18 08:15 Nasal Cannula 2.0 03/17/18 08:07 101 132/81 03/17/18 08:07 63 135/97 03/17/18 08:05 97.2 03/17/18 08:00 98.2 63 21 135/97 (110) 95 98.2 03/17/18 08:00 98.2 63 21 135/97 (110) 95 98.2 03/17/18 07:06 97.2 03/17/18 04:15 101 03/17/18 04:00 98.2 142 22 132/81 (98) 96 98.2 03/17/18 03:03 97.2 03/17/18 00:00 97.2 93 18 153/83 (106) 96 97.2 03/16/18 21:30 Room Air 03/16/18 20:00 99.2 93 18 137/77 (97) 96 99.2 03/16/18 18:27 98.2 03/16/18 16:00 98.2 89 22 133/70 (91) 96 98.2 03/16/18 12:00 97.2 89 20 142/81 (101) 93 97.2 Intake and Output 03/16/18 03/17/18 19:00 07:00 Intake Total 2050 ml 1240 ml Output Total 350 ml 350 ml Balance 1700 ml 890 ml Intake Oral 1050 ml 180 ml IV Total 1000 ml 1060 ml Output Urine Total 350 ml 350 ml Height (Feet): 5 Height (Inches): 10.00 Weight (Pounds): 117 Objective General Appearance: WD/WN, alert, thin Neck: supple Cardiovascular: normal rate, regular rhythm Respiratory/Chest: chest wall non-tender, lungs clear, normal breath sounds, no respiratory distress Abdomen: normal bowel sounds, non tender, soft, no organomegaly Edema: no edema noted Arm (L), no edema noted Arm (R), no edema noted Leg (L), no edema noted Leg (R), no edema noted Pedal (L), no edema noted Pedal (R), no edema noted Generalized Neurologic: line erector II-XII grossly normal, no motor/sensory deficits, alert, oriented x 3, responsive Justice Pereira MD Mar 17, 2018 11:57
[2018-03-17] MEDS ORDERED: dilTIAZem HCl 30mg tab ORAL SCH (12:00)
[2018-03-17] MEDS ORDERED: dilTIAZem HCl 25mg/5ml Inj IVP SCH (16:00)
[2018-03-17] MEDS: dilTIAZem HCl 60mg tab ORAL SCH (17:55)
[2018-03-17] MEDS: Albuterol/Ipratropium 3ml neb HHN SCH ×2 (19:59→22:50)
[2018-03-17] MEDS ORDERED: Zolpidem 5mg tab ORAL PRN (21:00)
[2018-03-17] MEDS: Tamsulosin 0.4mg cap ORAL SCH (21:16)
[2018-03-17] MEDS: Iron Sucrose 100 MG in NS 55 ML IV SCH (21:16)
[2018-03-18] VITALS: BP 124/62
[2018-03-18] MEDS: dilTIAZem HCl 60mg tab ORAL SCH ×4 (01:12→17:22)
[2018-03-18] MEDS: Albuterol/Ipratropium 3ml neb HHN SCH ×6 (03:21→23:00)
--- NOTE | 2018-03-18 03:45 | Progress Note ---
DATE: 03/17/2018 CARDIOLOGY PROGRESS NOTE SUBJECTIVE: The patient is feeling worse today. Abdominal distention and pain at times. Rapid heart rate noted. OBJECTIVE: VITAL SIGNS: Blood pressure 124/90, pulse 127, respirations 20, and afebrile. LUNGS: Diminished breath sounds. No wheezing. HEART: Irregularly irregular rhythm. Rapid rate. Normal S1, S2. ABDOMEN: Distended, but soft. EXTREMITIES: With trace edema. Distal pulses palpable. IMPRESSION: 1. Paroxysmal atrial fibrillation with rapid ventricular response. 2. Status post liver biopsy. 3. Metastatic carcinoma. 4. Dyspnea with increased risk for pulmonary embolus, although duplex of the leg was negative for DVT. 5. Chronic obstructive pulmonary disease. 6. Anemia. PLAN: 1. Transfer to monitored bed. 2. Start Cardizem intravenously and orally. 3. Await liver biopsy. 4. Consider full anticoagulation. 5. Continue DVT prophylaxis for now. 6. Garcia catheter for obstructive uropathy. 7. Prognosis poor due to metastatic disease. Jose Low M.D. DR: KATHY JOB#: [id number] CC:
[2018-03-18 04:00] VITALS: BP 122/61
[2018-03-18] MEDS: HYDROcodone/Acetamin 10/325 tab ORAL PRN ×3 (04:03→16:08)
[2018-03-18 05:57] LABS: BASOPHILS % (AUTO) 0.4 % (0.0-2.0); EOSINOPHILS % (AUTO) 0.2 % (0.0-3.0); HEMATOCRIT 24.6 % (42.0-52.0); HEMOGLOBIN 8.1 G/DL (14.2-18.0); LYMPHOCYTES % (AUTO) 10.6 % (20.0-45.0); MEAN CORPUSCULAR VOLUME 85 FL (80-99); MONOCYTES % (AUTO) 4.3 % (1.0-10.0); NEUTROPHILS % (AUTO) 84.5 % (45.0-75.0); PLATELET COUNT 377 K/UL (150-450); RED BLOOD COUNT 2.87 M/UL (4.70-6.10); RED CELL DISTRIBUTION WIDTH 17.9 % (11.6-14.8); WHITE BLOOD COUNT 11.8 K/UL (4.8-10.8)
[2018-03-18 06:12] LABS: ALANINE AMINOTRANSFERASE 14 U/L (12-78); ALBUMIN 1.3 G/DL (3.4-5.0); ALBUMIN/GLOBULIN RATIO 0.3 (1.0-2.7); ALKALINE PHOSPHATASE 99 U/L (46-116); ANION GAP 14 mmol/L (5-15); ASPARTATE AMINO TRANSFERASE 62 U/L (15-37); BILIRUBIN,TOTAL 0.2 MG/DL (0.2-1.0); BLOOD UREA NITROGEN 73 mg/dL (7-18); CALCIUM 8.3 MG/DL (8.5-10.1); CARBON DIOXIDE 17 MMOL/L (21-32); CHLORIDE 109 MMOL/L (98-107); CREATININE 3.3 MG/DL (0.55-1.30); POTASSIUM 5.1 MMOL/L (3.5-5.1); SODIUM 140 MMOL/L (136-145)
[2018-03-18 08:00] VITALS: BP 127/56
[2018-03-18] MEDS: Metoprolol Succinate XL 50mg tab ORAL SCH (08:25)
--- NOTE | 2018-03-18 08:39 | General Progress Note ---
Assessment/Plan Problem List: (1) Anemia ICD Codes: D64.9 - Anemia, unspecified SNOMED: 032297871 (2) Atrial fibrillation ICD Codes: I48.91 - Unspecified atrial fibrillation SNOMED: 17091862 (3) Hyperkalemia ICD Codes: E87.5 - Hyperkalemia SNOMED: 28817376 (4) Renal failure ICD Codes: N19 - Unspecified kidney failure SNOMED: 42283103 Status: stable, progressing Assessment/Plan cardiac rx/rate control gore transfuse as need follow up tumor markers follow up liver biopsy monitor volume status and renal fxn cardizem/metoprolol for rate control consider v/q Subjective ROS Limited/Unobtainable: No Constitutional: Reports: weakness HEENT: Reports: no symptoms Cardiovascular: Reports: no symptoms Respiratory: Reports: no symptoms Gastrointestinal/Abdominal: Reports: poor appetite Genitourinary: Reports: no symptoms Neurologic/Psychiatric: Reports: no symptoms Endocrine: Reports: no symptoms Hematologic/Lymphatic: Reports: anemia Allergies: Coded Allergies: No Known Allergies (Verified , 04/29/09) All Systems: reviewed and negative except above Subjective tachycardia much better. feels "better" today. no chest pain labs noted. renal fxn stable. Objective Last 24 Hour Vital Signs Date Time Temp Pulse Resp B/P (MAP) Pulse Ox O2 Delivery O2 Flow Rate FiO2 03/18/18 08:25 79 127/56 03/18/18 08:00 97.0 79 18 127/56 (79) 92 97.0 03/18/18 07:55 80 20 97 Nasal Cannula 2.0 28 03/18/18 07:55 Nasal Cannula 2.0 28 03/18/18 07:55 80 18 Nasal Cannula 2.0 28 03/18/18 05:54 82 122/61 03/18/18 04:00 97.4 79 22 122/61 (81) 94 97.4 03/18/18 04:00 82 03/18/18 03:28 79 18 99 Nasal Cannula 2.0 28 03/18/18 03:21 77 20 98 Nasal Cannula 2.0 28 03/18/18 01:12 87 124/62 03/18/18 00:00 87 03/18/18 00:00 97.4 78 22 124/62 (82) 97 97.4 03/17/18 23:10 84 18 98 Nasal Cannula 2.0 28 03/17/18 22:51 78 20 97 Nasal Cannula 2.0 28 03/17/18 21:00 79 03/17/18 21:00 Nasal Cannula 2.0 03/17/18 20:07 87 18 99 Nasal Cannula 2.0 28 03/17/18 20:02 76 20 Nasal Cannula 2.0 28 03/17/18 20:00 76 20 96 Nasal Cannula 2.0 28 03/17/18 20:00 98.0 79 26 145/78 (100) 94 98.0 03/17/18 17:55 78 130/69 03/17/18 16:05 137 140/85 03/17/18 16:00 130 03/17/18 15:29 97.5 137 20 140/85 (103) 100 97.5 03/17/18 12:00 147 03/17/18 11:40 136 149/93 03/17/18 11:34 97.6 136 20 149/93 (111) 98 97.6 03/17/18 09:50 97.7 127 20 124/90 (101) 98 97.7 Intake and Output 03/17/18 03/18/18 19:00 07:00 Intake Total 900 ml 260 ml Output Total 150 ml 325 ml Balance 750 ml -65 ml Intake Oral 200 ml 200 ml IV Total 700 ml 60 ml Output Urine Total 150 ml 325 ml Post Void Residual 0 ml Stool Total 0 ml Bladder Scan Volume Amount <10 ml Laboratory Tests 03/18/18 04:35: White Blood Count 11.8H, Red Blood Count 2.87L, Hemoglobin 8.1L, Hematocrit 24.6L, Mean Corpuscular Volume 85, Mean Corpuscular Hemoglobin 28.3, Mean Corpuscular Hemoglobin Concent 33.1, Red Cell Distribution Width 17.9H, Platelet Count 377, Mean Platelet Volume 4.7L, Neutrophils (%) (Auto) 84.5H, Lymphocytes (%) (Auto) 10.6L, Monocytes (%) (Auto) 4.3, Eosinophils (%) (Auto) 0.2, Basophils (%) (Auto) 0.4, Sodium Level 140, Potassium Level 5.1, Chloride Level 109H, Carbon Dioxide Level 17L, Anion Gap 14, Blood Urea Nitrogen 73H, Creatinine 3.3H, Estimat Glomerular Filtration Rate , Glucose Level 128H, Calcium Level 8.3L, Total Bilirubin 0.2, Aspartate Amino Transf (AST/SGOT) 62H, Alanine Aminotransferase (ALT/SGPT) 14, Alkaline Phosphatase 99, Total Protein 6.1L, Albumin 1.3L, Globulin 4.8, Albumin/Globulin Ratio 0.3L Height (Feet): 5 Height (Inches): 10.00 Weight (Pounds): 117 Objective General Appearance: WD/WN, alert, thin Neck: supple Cardiovascular: normal rate, regular rhythm Respiratory/Chest: chest wall non-tender, lungs clear, normal breath sounds, no respiratory distress Abdomen: normal bowel sounds, non tender, soft, no organomegaly Edema: no edema noted Arm (L), no edema noted Arm (R), no edema noted Leg (L), no edema noted Leg (R), no edema noted Pedal (L), no edema noted Pedal (R), no edema noted Generalized Neurologic: 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
--- NOTE | 2018-03-18 09:42 | Urology Progress Note ---
Assessment/Plan Assessment/Plan 1. Left-sided hydronephrosis which is chronic. 2. BPH history. 3. Renal insufficiency which appears to be acute on chronic. 4. Renal cyst history. 5. Adrenal adenoma. monitor clinically monitor renal fxn gore indwelling for now cont abx f/u on bx path med/onc eval at some point cysto later Subjective Allergies: Coded Allergies: No Known Allergies (Verified , 04/29/09) Subjective all noted, feels fair Objective Last 24 Hour Vital Signs Date Time Temp Pulse Resp B/P (MAP) Pulse Ox O2 Delivery O2 Flow Rate FiO2 03/18/18 08:58 Nasal Cannula 2.0 Nasal Cannula 2.0 03/18/18 08:25 79 127/56 03/18/18 08:00 77 03/18/18 08:00 97.0 79 18 127/56 (79) 92 97.0 03/18/18 07:55 80 20 97 Nasal Cannula 2.0 28 03/18/18 07:55 Nasal Cannula 2.0 28 03/18/18 07:55 80 18 Nasal Cannula 2.0 28 03/18/18 05:54 82 122/61 03/18/18 04:00 97.4 79 22 122/61 (81) 94 97.4 03/18/18 04:00 82 03/18/18 03:28 79 18 99 Nasal Cannula 2.0 28 03/18/18 03:21 77 20 98 Nasal Cannula 2.0 28 03/18/18 01:12 87 124/62 03/18/18 00:00 87 03/18/18 00:00 97.4 78 22 124/62 (82) 97 97.4 03/17/18 23:10 84 18 98 Nasal Cannula 2.0 28 03/17/18 22:51 78 20 97 Nasal Cannula 2.0 28 03/17/18 21:00 79 03/17/18 21:00 Nasal Cannula 2.0 03/17/18 20:07 87 18 99 Nasal Cannula 2.0 28 03/17/18 20:02 76 20 Nasal Cannula 2.0 28 03/17/18 20:00 76 20 96 Nasal Cannula 2.0 28 03/17/18 20:00 98.0 79 26 145/78 (100) 94 98.0 03/17/18 17:55 78 130/69 03/17/18 16:05 137 140/85 03/17/18 16:00 130 03/17/18 15:29 97.5 137 20 140/85 (103) 100 97.5 03/17/18 12:00 147 03/17/18 11:40 136 149/93 03/17/18 11:34 97.6 136 20 149/93 (111) 98 97.6 03/17/18 09:50 97.7 127 20 124/90 (101) 98 97.7 Intake and Output 03/17/18 03/18/18 19:00 07:00 Intake Total 900 ml 260 ml Output Total 150 ml 325 ml Balance 750 ml -65 ml Intake Oral 200 ml 200 ml IV Total 700 ml 60 ml Output Urine Total 150 ml 325 ml Post Void Residual 0 ml Stool Total 0 ml Bladder Scan Volume Amount <10 ml Current Medications Medications (Trade) Dose Ordered Sig/Faizan Route PRN Reason Start Time Stop Time Status Last Admin Dose Admin Acetaminophen/ Hydrocodone Bitart ([place] 10/325) 1 tab Q4H PRN ORAL For Pain 03/17/18 11:15 03/19/18 23:14 03/18/18 04:03 Albuterol/ Ipratropium (Albuterol/ Ipratropium) 3 ml Q4HRT HHN 03/17/18 19:00 03/22/18 18:59 03/18/18 03:21 Ciprofloxacin (Cipro 250mg tab) 250 mg Q18H ORAL 03/17/18 17:00 03/21/18 16:59 03/17/18 16:05 Diltiazem HCl (Cardizem) 60 mg EVERY 6 HOURS ORAL 03/17/18 18:00 04/16/18 17:59 03/18/18 05:54 Epoetin Robby (Procrit (for non ESRD use)) 5,000 units MON-MON-MON SUBQ 03/19/18 21:00 04/13/18 20:59 Finasteride (Proscar) 5 mg DAILY ORAL 03/18/18 09:00 04/12/18 08:59 03/18/18 08:25 Hydralazine HCl (Apresoline) 25 mg Q6H PRN ORAL SBP above 160 03/17/18 10:00 04/16/18 09:59 Iron Sucrose 100 mg/Sodium Chloride 60 ml @ 240 mls/hr BEDTIME IV 03/17/18 21:00 03/19/18 21:14 03/17/18 21:16 Metoprolol Succinate (Toprol XL) 50 mg DAILY ORAL 03/18/18 09:00 04/12/18 08:59 03/18/18 08:25 Ondansetron HCl (Zofran) 4 mg Q6H PRN IVP Nausea & Vomiting 03/17/18 10:00 04/11/18 09:59 Sodium Chloride 1,000 ml @ 100 mls/hr Q10H IV 03/17/18 09:45 04/12/18 03:29 03/17/18 10:01 Tamsulosin HCl (Flomax) 0.4 mg BEDTIME ORAL 03/17/18 21:00 04/12/18 20:59 03/17/18 21:16 Zolpidem Tartrate (Ambien) 5 mg HSPRN PRN ORAL Insomnia 03/17/18 21:00 03/19/18 20:59 Laboratory Tests 03/18/18 04:35: White Blood Count 11.8H, Red Blood Count 2.87L, Hemoglobin 8.1L, Hematocrit 24.6L, Mean Corpuscular Volume 85, Mean Corpuscular Hemoglobin 28.3, Mean Corpuscular Hemoglobin Concent 33.1, Red Cell Distribution Width 17.9H, Platelet Count 377, Mean Platelet Volume 4.7L, Neutrophils (%) (Auto) 84.5H, Lymphocytes (%) (Auto) 10.6L, Monocytes (%) (Auto) 4.3, Eosinophils (%) (Auto) 0.2, Basophils (%) (Auto) 0.4, Sodium Level 140, Potassium Level 5.1, Chloride Level 109H, Carbon Dioxide Level 17L, Anion Gap 14, Blood Urea Nitrogen 73H, Creatinine 3.3H, Estimat Glomerular Filtration Rate , Glucose Level 128H, Calcium Level 8.3L, Total Bilirubin 0.2, Aspartate Amino Transf (AST/SGOT) 62H, Alanine Aminotransferase (ALT/SGPT) 14, Alkaline Phosphatase 99, Total Protein 6.1L, Albumin 1.3L, Globulin 4.8, Albumin/Globulin Ratio 0.3L Height (Feet): 5 Height (Inches): 10.00 Weight (Pounds): 117 Objective exam stable, gore indwelling, grossly prema ALISON FUENTES Mar 18, 2018 09:42
[2018-03-18 11:36] VITALS: BP 139/62
--- NOTE | 2018-03-18 12:25 | Diagnostic Imaging Report ---
EXAM: XR Chest, 1 View CLINICAL HISTORY: Shortness of breath TECHNIQUE: Frontal view of the chest. COMPARISON: Chest x-ray dated 03/16/18 FINDINGS: Lungs: Mild pulmonary vascular congestion. Minimal bibasilar atelectasis. The lungs are otherwise clear. Pleural space: Persistent blunting of bilateral costophrenic angles with silhouetting of left hemidiaphragm, suggesting small bilateral pleural effusions, not significant changed. No pneumothorax. Heart: Unremarkable. No cardiomegaly. Mediastinum: Unremarkable. Bones/joints: Unremarkable. Vasculature: The aorta is tortuous. Atherosclerotic calcifications are noted within the aortic arch. Tubes, lines and devices: EKG leads overlie the thorax. IMPRESSION: 1. Small bilateral pleural effusions, not significantly changed. 2. Mild pulmonary vascular congestion.
--- NOTE | 2018-03-18 12:48 | Cardiology Report ---
APPROVED REPORT EKG Measurement Heart [id number] Normal sinus rhythm Possible Anterior infarct, age undetermined Abnormal ECG
--- NOTE | 2018-03-18 14:42 | Cardiology Report ---
APPROVED REPORT EXAM: Two-dimensional and M-mode echocardiogram with Doppler and color Doppler. INDICATION Arrhythmia M-Mode DIMENSIONS IVSd2.4 (0.7-1.1cm)Left Atrium (MM)4.1 (1.6-4.0cm) LVDd2.9 (3.5-5.6cm)Aortic Root4.0 (2.0-3.7cm) PWd1.9 (0.7-1.1cm)Aortic Cusp Exc.2.3 (1.5-2.0cm) IVSs2.6 cm LVDs1.7 (2.5-4.0cm) PWs1.6 cm Normal left ventricular chamber size, systolic function and wall motion. Left ventricular ejection fraction estimated to be 60-65 %. Mild left ventricular hypertrophy by 2-D. No evidence of pericardial effusion. Large posterior pleural effusion present . All other cardiac chamber sizes are within normal limits. Focal aortic valve sclerosis with adequate cusp excursion. Thickened mitral valve leaflets with normal excursion. Mitral annulus and aortic root calcification. Pulmonic valve not well visualized. Normal tricuspid valve structure. IVC at normal size with physiologic collapse. A color flow and spectral Doppler study was performed and revealed: Moderate aortic regurgitation. Trace mitral regurgitation. Normal left ventricular diastolic function . Mild tricuspid regurgitation. Tricuspid systolic velocities suggests peak right ventricular systolic pressure of 40 mmHg,consistent with mild pulmonary hypertension.
[2018-03-18 16:00] VITALS: BP 127/60
--- NOTE | 2018-03-18 17:00 | Progress Note ---
DATE: 03/18/2018 CARDIOLOGY PROGRESS NOTE SUBJECTIVE: The patient feels better. Heart rate have improved. Monitor now sinus rhythm with atrial premature beats and episodes of atrial fibrillation now rate controlled. OBJECTIVE: VITAL SIGNS: Blood pressure 139/62, pulse 81, respiratory rate 18, oxygen saturation room air 95%. LUNGS: Diminished breath sounds. CARDIAC: Regular rhythm and rate. Normal S1 and S2 with a fourth heart sound. ABDOMEN: Soft and nontender. EXTREMITIES: Trace edema. LABORATORY AND DIAGNOSTIC DATA: White count 11.8 and hemoglobin 8.1. BUN 73 and creatinine 3.3. IMPRESSION: 1. Metastatic carcinoma. 2. Paroxysmal atrial fibrillation. 3. Acute on chronic renal failure. 4. Obstructive uropathy. 5. Anemia. 6. Acute on chronic diastolic congestive heart failure. PLAN: 1. No anticoagulation due to bleeding risk. 2. Maintain diltiazem and metoprolol for rate control. 3. Continue Garcia catheter. 4. Await biopsy results. 5. Iron replacement by IV route. 6. May need transfusion for further drop in hemoglobin. Jose Low M.D. DR: Manny JOB#: [id number] CC:
[2018-03-18 20:00] VITALS: BP 123/59
[2018-03-18] MEDS: Tamsulosin 0.4mg cap ORAL SCH (20:30)
[2018-03-18] MEDS: Iron Sucrose 100 MG in NS 55 ML IV SCH (20:34)
[2018-03-19] VITALS: BP 128/60
[2018-03-19] MEDS: dilTIAZem HCl 60mg tab ORAL SCH ×4 (00:31→18:12)
[2018-03-19] MEDS: HYDROcodone/Acetamin 10/325 tab ORAL PRN ×4 (00:50→20:33)
[2018-03-19] MEDS: Albuterol/Ipratropium 3ml neb HHN SCH ×6 (03:00→23:00)
[2018-03-19 04:00] VITALS: BP 147/70
[2018-03-19 08:00] VITALS: BP 133/68
[2018-03-19] MEDS: Metoprolol Succinate XL 50mg tab ORAL SCH (08:14)
--- NOTE | 2018-03-19 08:53 | General Progress Note ---
Assessment/Plan Problem List: (1) Anemia ICD Codes: D64.9 - Anemia, unspecified SNOMED: 977883338 (2) Atrial fibrillation ICD Codes: I48.91 - Unspecified atrial fibrillation SNOMED: 72107925 (3) Hyperkalemia ICD Codes: E87.5 - Hyperkalemia SNOMED: 24912192 (4) Renal failure ICD Codes: N19 - Unspecified kidney failure SNOMED: 13093955 Status: stable, progressing Assessment/Plan cardiac rx/rate control gore transfuse as need follow up tumor markers follow up liver biopsy monitor volume status and renal fxn ?ureteral stent cardizem/metoprolol for rate control poor prognosis Subjective ROS Limited/Unobtainable: No Constitutional: Reports: malaise, weakness HEENT: Reports: no symptoms Cardiovascular: Reports: no symptoms Respiratory: Reports: no symptoms Gastrointestinal/Abdominal: Reports: no symptoms Genitourinary: Reports: no symptoms Neurologic/Psychiatric: Reports: no symptoms Endocrine: Reports: no symptoms Hematologic/Lymphatic: Reports: no symptoms Allergies: Coded Allergies: No Known Allergies (Verified , 04/29/09) All Systems: reviewed and negative except above Subjective tachycardia much better. feels "better" today. no chest pain labs noted. renal fxn stable. Objective Last 24 Hour Vital Signs Date Time Temp Pulse Resp B/P (MAP) Pulse Ox O2 Delivery O2 Flow Rate FiO2 03/19/18 08:14 77 133/68 03/19/18 08:00 97.1 77 18 133/68 (89) 100 97.1 03/19/18 07:58 76 18 98 Nasal Cannula 2.0 28 03/19/18 07:50 78 18 Nasal Cannula 2.0 28 03/19/18 07:50 78 20 98 Nasal Cannula 2.0 28 03/19/18 06:04 75 147/70 03/19/18 04:00 75 03/19/18 04:00 97.0 76 20 147/70 (95) 95 97.0 03/19/18 03:20 Room Air 03/19/18 03:20 Room Air 03/19/18 00:31 75 128/60 03/19/18 00:00 75 03/19/18 00:00 98.3 76 20 128/60 (82) 92 98.3 03/18/18 23:37 Room Air 03/18/18 23:37 Room Air 03/18/18 21:00 Room Air 03/18/18 20:00 76 03/18/18 20:00 98.0 78 20 123/59 (80) 92 98.0 03/18/18 19:18 Room Air 03/18/18 19:18 Room Air 03/18/18 19:18 Room Air 21 03/18/18 17:22 76 127/60 03/18/18 16:00 76 03/18/18 16:00 97.4 78 19 127/60 (82) 94 97.4 03/18/18 15:15 Nasal Cannula 1.0 24 03/18/18 15:15 78 20 95 Nasal Cannula 1.0 24 03/18/18 12:00 79 03/18/18 11:41 81 139/62 03/18/18 11:40 78 20 95 Room Air 21 03/18/18 11:40 Room Air 21 03/18/18 11:36 97.4 81 20 139/62 (87) 93 97.4 03/18/18 08:58 Nasal Cannula 2.0 Nasal Cannula 2.0 Intake and Output 03/18/18 03/19/18 19:00 07:00 Intake Total 400 ml 360 ml Output Total 150 ml 300 ml Balance 250 ml 60 ml Intake Oral 400 ml 300 ml IV Total 60 ml Output Urine Total 150 ml 300 ml Height (Feet): 5 Height (Inches): 10.00 Weight (Pounds): 117 Objective General Appearance: WD/WN, alert, thin Neck: supple Cardiovascular: normal rate, regular rhythm Respiratory/Chest: chest wall non-tender, lungs clear, normal breath sounds, no respiratory distress Abdomen: normal bowel sounds, non tender, soft, no organomegaly Edema: no edema noted Arm (L), no edema noted Arm (R), no edema noted Leg (L), no edema noted Leg (R), no edema noted Pedal (L), no edema noted Pedal (R), no edema noted Generalized Neurologic: locator II-XII grossly normal, no motor/sensory deficits, alert, oriented x 3, responsive Justice Pereira MD Mar 19, 2018 08:53
--- NOTE | 2018-03-19 09:37 | Urology Progress Note ---
Assessment/Plan Assessment/Plan 1. Left-sided hydronephrosis which is chronic. 2. BPH history. 3. Renal insufficiency which appears to be acute on chronic. 4. Renal cyst history. 5. Adrenal adenoma. monitor clinically monitor renal fxn gore indwelling for now cont abx f/u on bx path med/onc eval at some point cysto later voiding tria lsoon? Subjective Allergies: Coded Allergies: No Known Allergies (Verified , 04/29/09) Subjective all noted, feels fair Objective Last 24 Hour Vital Signs Date Time Temp Pulse Resp B/P (MAP) Pulse Ox O2 Delivery O2 Flow Rate FiO2 03/19/18 09:00 Room Air 03/19/18 08:14 77 133/68 03/19/18 08:00 97.1 77 18 133/68 (89) 100 97.1 03/19/18 07:58 76 18 98 Nasal Cannula 2.0 28 03/19/18 07:50 78 18 Nasal Cannula 2.0 28 03/19/18 07:50 78 20 98 Nasal Cannula 2.0 28 03/19/18 06:04 75 147/70 03/19/18 04:00 75 03/19/18 04:00 97.0 76 20 147/70 (95) 95 97.0 03/19/18 03:20 Room Air 03/19/18 03:20 Room Air 03/19/18 00:31 75 128/60 03/19/18 00:00 75 03/19/18 00:00 98.3 76 20 128/60 (82) 92 98.3 03/18/18 23:37 Room Air 03/18/18 23:37 Room Air 03/18/18 21:00 Room Air 03/18/18 20:00 76 03/18/18 20:00 98.0 78 20 123/59 (80) 92 98.0 03/18/18 19:18 Room Air 03/18/18 19:18 Room Air 03/18/18 19:18 Room Air 21 03/18/18 17:22 76 127/60 03/18/18 16:00 76 03/18/18 16:00 97.4 78 19 127/60 (82) 94 97.4 03/18/18 15:15 Nasal Cannula 1.0 24 03/18/18 15:15 78 20 95 Nasal Cannula 1.0 24 03/18/18 12:00 79 03/18/18 11:41 81 139/62 03/18/18 11:40 78 20 95 Room Air 21 03/18/18 11:40 Room Air 21 03/18/18 11:36 97.4 81 20 139/62 (87) 93 97.4 Intake and Output 03/18/18 03/19/18 19:00 07:00 Intake Total 400 ml 360 ml Output Total 150 ml 300 ml Balance 250 ml 60 ml Intake Oral 400 ml 300 ml IV Total 60 ml Output Urine Total 150 ml 300 ml Current Medications Medications (Trade) Dose Ordered Sig/Faizan Route PRN Reason Start Time Stop Time Status Last Admin Dose Admin Acetaminophen/ Hydrocodone Bitart ([place] 10/325) 1 tab Q4H PRN ORAL For Pain 03/17/18 11:15 03/19/18 23:14 03/19/18 07:35 Albuterol/ Ipratropium (Albuterol/ Ipratropium) 3 ml Q4HRT HHN 03/17/18 19:00 03/22/18 18:59 03/19/18 07:50 Ciprofloxacin (Cipro 250mg tab) 250 mg Q18H ORAL 03/17/18 17:00 03/21/18 16:59 03/19/18 06:04 Diltiazem HCl (Cardizem) 60 mg EVERY 6 HOURS ORAL 03/17/18 18:00 04/16/18 17:59 03/19/18 06:04 Epoetin Robby (Procrit (for non ESRD use)) 5,000 units MON-MON-MON SUBQ 03/19/18 21:00 04/13/18 20:59 Finasteride (Proscar) 5 mg DAILY ORAL 03/18/18 09:00 04/12/18 08:59 03/19/18 08:14 Hydralazine HCl (Apresoline) 25 mg Q6H PRN ORAL SBP above 160 03/17/18 10:00 04/16/18 09:59 Iron Sucrose 100 mg/Sodium Chloride 60 ml @ 240 mls/hr BEDTIME IV 03/17/18 21:00 03/19/18 21:14 03/18/18 20:34 Metoprolol Succinate (Toprol XL) 50 mg DAILY ORAL 03/18/18 09:00 04/12/18 08:59 03/19/18 08:14 Ondansetron HCl (Zofran) 4 mg Q6H PRN IVP Nausea & Vomiting 03/17/18 10:00 04/11/18 09:59 Tamsulosin HCl (Flomax) 0.4 mg BEDTIME ORAL 03/17/18 21:00 04/12/18 20:59 03/18/18 20:30 Zolpidem Tartrate (Ambien) 5 mg HSPRN PRN ORAL Insomnia 03/17/18 21:00 03/19/18 20:59 Height (Feet): 5 Height (Inches): 10.00 Weight (Pounds): 117 Objective exam stable, gore indwelling, grossly prema BAMSHAD,ALISON Mar 19, 2018 09:37
[2018-03-19 12:00] VITALS: BP 125/88
[2018-03-19 16:00] VITALS: BP 118/67
[2018-03-19 20:00] VITALS: BP 139/61
[2018-03-19] MEDS: Tamsulosin 0.4mg cap ORAL SCH (20:32)
[2018-03-19] MEDS: Iron Sucrose 100 MG in NS 55 ML IV SCH (20:33)
[2018-03-19] MEDS ORDERED: Epogen (for non ESRD use) SUBQ SCH (21:00)
--- NOTE | 2018-03-19 22:30 | Progress Note ---
DATE: 03/19/2018 CARDIOLOGY PROGRESS NOTE SUBJECTIVE: The patient without chest pain or shortness of breath. Still some coughing. Atrial fibrillation, now rate controlled with episodes of sinus rhythm. OBJECTIVE: VITAL SIGNS: Blood pressure 133/68, pulse 77, and respirations 18. LUNGS: Diminished breath sounds. HEART: Regular rhythm and rate. Normal S1, S2 with a fourth heart sound. ABDOMEN: Soft. EXTREMITIES: With trace edema. Catheter remains in place. LABORATORY DATA: Tumor markers are notable for CA 19-9 of 715 and CEA of 3, which is normal. Pathology still pending. IMPRESSION: 1. Metastatic carcinoma with elevated CA 19-9. 2. Severe protein-calorie malnutrition. 3. Paroxysmal atrial fibrillation, now rate controlled. 4. Hypertensive heart disease with blood pressure control. 5. Acute on chronic diastolic congestive heart failure, now clinically compensated. 6. Metabolic acidosis. 7. Acute on chronic renal failure with obstructive component, now resolved with Garcia catheter. PLAN: I have discussed with the patient's niece again today the severity of his condition and poor prognosis and as soon as a definitive pathology, diagnosis is obtained. She agrees to discuss this with the patient in greater detail and finalize advance directives. It is also mutually agreed that the patient will require skilled care upon his discharge at least for the short-term and may be an appropriate hospice candidate to follow. In the interim, his monitoring and evaluation advisor will be discontinued and he will be continued on his current medication regimen pending final diagnostic data. Jose Low M.D. DR: REJI JOB#: [id number] CC:
[2018-03-20] VITALS: BP 134/71
[2018-03-20] MEDS: dilTIAZem HCl 60mg tab ORAL SCH ×4 (00:21→17:23)
[2018-03-20] MEDS ORDERED: HYDROcodone/Acetamin 10/325 tab ORAL PRN (01:00)
[2018-03-20] MEDS: Albuterol/Ipratropium 3ml neb HHN SCH ×6 (03:00→23:00)
[2018-03-20 04:00] VITALS: BP 128/66
[2018-03-20 07:41] LABS: BASOPHILS % (AUTO) 0.7 % (0.0-2.0); EOSINOPHILS % (AUTO) 0.7 % (0.0-3.0); HEMATOCRIT 25.8 % (42.0-52.0); HEMOGLOBIN 8.4 G/DL (14.2-18.0); LYMPHOCYTES % (AUTO) 14.6 % (20.0-45.0); MEAN CORPUSCULAR VOLUME 85 FL (80-99); MONOCYTES % (AUTO) 5.1 % (1.0-10.0); PLATELET COUNT 406 K/UL (150-450); RED BLOOD COUNT 3.02 M/UL (4.70-6.10); RED CELL DISTRIBUTION WIDTH 18.1 % (11.6-14.8); WHITE BLOOD COUNT 12.8 K/UL (4.8-10.8)
[2018-03-20 08:27] VITALS: BP 138/67
[2018-03-20] MEDS: Metoprolol Succinate XL 50mg tab ORAL SCH (08:31)
--- NOTE | 2018-03-20 08:34 | Diagnostic Imaging Report ---
Indications: 88-year-old male with shortness of breath Technique: IV administration 5 mCi 99m technetium macroaggregated albumin. Images obtained over the lungs in multiple projections. Previously, patient inhaled 40 mCi aerosolized 99M technetium DTPA. Images obtained over the lungs in multiple projections Comparison: Reference made to chest radiograph 03/18/2018 Findings: Perfusion is slightly heterogeneous, but no segmental or subsegmental perfusion defects or evidence of ventilation/perfusion mismatch are demonstrated. Impression: Low probability of pulmonary embolus
--- NOTE | 2018-03-20 08:47 | General Progress Note ---
Assessment/Plan Problem List: (1) Anemia ICD Codes: D64.9 - Anemia, unspecified SNOMED: 054915995 (2) Atrial fibrillation ICD Codes: I48.91 - Unspecified atrial fibrillation SNOMED: 67101772 (3) Hyperkalemia ICD Codes: E87.5 - Hyperkalemia SNOMED: 15171778 (4) Renal failure ICD Codes: N19 - Unspecified kidney failure SNOMED: 28720160 Status: stable Assessment/Plan cardiac rx/rate control gore transfuse as need follow up liver biopsy monitor volume status and renal fxn cardizem/metoprolol for rate control poor prognosis snf Subjective ROS Limited/Unobtainable: No Constitutional: Reports: malaise, weakness HEENT: Reports: no symptoms Cardiovascular: Reports: no symptoms Respiratory: Reports: no symptoms Gastrointestinal/Abdominal: Reports: no symptoms Genitourinary: Reports: no symptoms Neurologic/Psychiatric: Reports: no symptoms Endocrine: Reports: no symptoms Hematologic/Lymphatic: Reports: anemia Allergies: Coded Allergies: No Known Allergies (Verified , 04/29/09) Subjective no svt. elevated ca-19 noted. path from liver biopsy not back yet. denies chest pain or sob. Objective Last 24 Hour Vital Signs Date Time Temp Pulse Resp B/P (MAP) Pulse Ox O2 Delivery O2 Flow Rate FiO2 03/20/18 08:31 71 138/67 03/20/18 08:27 98.2 71 20 138/67 (90) 97 98.2 03/20/18 07:53 71 20 99 Room Air 21 03/20/18 07:45 72 20 97 Nasal Cannula 2.0 28 03/20/18 06:21 76 128/66 03/20/18 04:00 97.8 76 18 128/66 (86) 95 97.8 03/20/18 03:23 Nasal Cannula 1.0 24 03/20/18 03:22 Nasal Cannula 2.0 28 03/20/18 00:21 75 137/66 03/20/18 00:00 98.3 74 20 134/71 (92) 94 98.3 03/19/18 23:07 Room Air 03/19/18 23:07 Room Air 21 03/19/18 21:00 Room Air 03/19/18 20:00 98.5 72 18 139/61 (87) 94 98.5 03/19/18 19:14 73 20 99 Nasal Cannula 1.0 24 03/19/18 19:10 74 20 97 Nasal Cannula 2.0 28 03/19/18 19:08 74 20 Nasal Cannula 2.0 28 03/19/18 18:12 87 133/66 03/19/18 16:00 74 03/19/18 16:00 97.5 73 18 118/67 (84) 95 97.5 03/19/18 15:30 Room Air 21 03/19/18 15:30 72 20 95 Room Air 21 03/19/18 12:13 72 125/88 03/19/18 12:00 97.8 72 18 125/88 (100) 94 97.8 03/19/18 12:00 73 03/19/18 11:47 74 18 95 Room Air 21 03/19/18 11:38 74 18 99 Nasal Cannula 2.0 28 03/19/18 09:00 Room Air Intake and Output 03/19/18 03/20/18 19:00 07:00 Intake Total 120 ml Output Total 300 ml 300 ml Balance -180 ml -300 ml Intake Oral 120 ml Output Urine Total 300 ml 300 ml Laboratory Tests 03/20/18 07:30: White Blood Count 12.8H, Red Blood Count 3.02L, Hemoglobin 8.4L, Hematocrit 25.8L, Mean Corpuscular Volume 85, Mean Corpuscular Hemoglobin 27.6, Mean Corpuscular Hemoglobin Concent 32.4, Red Cell Distribution Width 18.1H, Platelet Count 406, Mean Platelet Volume 4.7L, Neutrophils (%) (Auto) 79.0H, Lymphocytes (%) (Auto) 14.6L, Monocytes (%) (Auto) 5.1, Eosinophils (%) (Auto) 0.7, Basophils (%) (Auto) 0.7, Pro-B-Type Natriuretic Peptide 82706S Height (Feet): 5 Height (Inches): 10.00 Weight (Pounds): 117 Objective General Appearance: WD/WN, alert, thin Neck: supple Cardiovascular: normal rate, regular rhythm Respiratory/Chest: chest wall non-tender, lungs clear, normal breath sounds, no respiratory distress Abdomen: normal bowel sounds, non tender, soft, no organomegaly Edema: no edema noted Arm (L), no edema noted Arm (R), no edema noted Leg (L), no edema noted Leg (R), no edema noted Pedal (L), no edema noted Pedal (R), no edema noted Generalized Neurologic: 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
--- NOTE | 2018-03-20 08:57 | Urology Progress Note ---
Assessment/Plan Assessment/Plan 1. Left-sided hydronephrosis which is chronic. 2. BPH history. 3. Renal insufficiency which appears to be acute on chronic. 4. Renal cyst history. 5. Adrenal adenoma. monitor clinically monitor renal fxn gore indwelling for now cont abx f/u on bx path med/onc eval at some point cysto later voiding tria lsoon? Subjective Allergies: Coded Allergies: No Known Allergies (Verified , 04/29/09) Subjective all noted, feels fair Objective Last 24 Hour Vital Signs Date Time Temp Pulse Resp B/P (MAP) Pulse Ox O2 Delivery O2 Flow Rate FiO2 03/20/18 08:31 71 138/67 03/20/18 08:27 98.2 71 20 138/67 (90) 97 98.2 03/20/18 07:53 71 20 99 Room Air 03/20/18 07:45 72 20 97 Nasal Cannula 2.0 28 03/20/18 06:21 76 128/66 03/20/18 04:00 97.8 76 18 128/66 (86) 95 97.8 03/20/18 03:23 Nasal Cannula 1.0 24 03/20/18 03:22 Nasal Cannula 2.0 28 03/20/18 00:21 75 137/66 03/20/18 00:00 98.3 74 20 134/71 (92) 94 98.3 03/19/18 23:07 Room Air 03/19/18 23:07 Room Air 21 03/19/18 21:00 Room Air 03/19/18 20:00 98.5 72 18 139/61 (87) 94 98.5 03/19/18 19:14 73 20 99 Nasal Cannula 1.0 24 03/19/18 19:10 74 20 97 Nasal Cannula 2.0 28 03/19/18 19:08 74 20 Nasal Cannula 2.0 28 03/19/18 18:12 87 133/66 03/19/18 16:00 74 03/19/18 16:00 97.5 73 18 118/67 (84) 95 97.5 03/19/18 15:30 Room Air 21 03/19/18 15:30 72 20 95 Room Air 21 03/19/18 12:13 72 125/88 03/19/18 12:00 97.8 72 18 125/88 (100) 94 97.8 03/19/18 12:00 73 03/19/18 11:47 74 18 95 Room Air 21 03/19/18 11:38 74 18 99 Nasal Cannula 2.0 28 03/19/18 09:00 Room Air Intake and Output 03/19/18 03/20/18 19:00 07:00 Intake Total 120 ml Output Total 300 ml 300 ml Balance -180 ml -300 ml Intake Oral 120 ml Output Urine Total 300 ml 300 ml Current Medications Medications (Trade) Dose Ordered Sig/Faizan Route PRN Reason Start Time Stop Time Status Last Admin Dose Admin Acetaminophen/ Hydrocodone Bitart ([place] 10/325) 1 tab Q4H PRN ORAL For Pain 03/20/18 09:00 03/27/18 00:59 Albuterol/ Ipratropium (Albuterol/ Ipratropium) 3 ml Q4HRT HHN 03/20/18 07:00 03/22/18 18:59 03/20/18 07:44 Ciprofloxacin (Cipro 250mg tab) 250 mg Q18H ORAL 03/20/18 17:00 03/21/18 16:59 Diltiazem HCl (Cardizem) 60 mg EVERY 6 HOURS ORAL 03/20/18 06:00 04/16/18 17:59 03/20/18 06:21 Epoetin Robby (Procrit (for non ESRD use)) 5,000 units MON-MON-MON SUBQ 03/21/18 21:00 04/13/18 20:59 Finasteride (Proscar) 5 mg DAILY ORAL 03/20/18 09:00 04/12/18 08:59 03/20/18 08:31 Hydralazine HCl (Apresoline) 25 mg Q6H PRN ORAL SBP above 160 03/20/18 10:00 04/16/18 09:59 Metoprolol Succinate (Toprol XL) 50 mg DAILY ORAL 03/20/18 09:00 04/12/18 08:59 03/20/18 08:31 Ondansetron HCl (Zofran) 4 mg Q6H PRN IVP Nausea & Vomiting 03/20/18 10:00 04/11/18 09:59 Tamsulosin HCl (Flomax) 0.4 mg BEDTIME ORAL 03/20/18 21:00 04/12/18 20:59 Laboratory Tests 03/20/18 07:30: White Blood Count 12.8H, Red Blood Count 3.02L, Hemoglobin 8.4L, Hematocrit 25.8L, Mean Corpuscular Volume 85, Mean Corpuscular Hemoglobin 27.6, Mean Corpuscular Hemoglobin Concent 32.4, Red Cell Distribution Width 18.1H, Platelet Count 406, Mean Platelet Volume 4.7L, Neutrophils (%) (Auto) 79.0H, Lymphocytes (%) (Auto) 14.6L, Monocytes (%) (Auto) 5.1, Eosinophils (%) (Auto) 0.7, Basophils (%) (Auto) 0.7, Pro-B-Type Natriuretic Peptide 32386R Height (Feet): 5 Height (Inches): 10.00 Weight (Pounds): 117 Objective exam stable, gore indwelling, grossly prema BAMSHAD,ALISON Mar 20, 2018 08:57
[2018-03-20] MEDS: HYDROcodone/Acetamin 10/325 tab ORAL PRN ×2 (09:03→22:03)
[2018-03-20] MEDS ORDERED: HydrALAZINE 25mg tab ORAL PRN (10:00)
[2018-03-20 11:36] VITALS: BP 111/60
[2018-03-20 16:00] VITALS: BP 146/57
[2018-03-20 19:37] VITALS: BP 131/66
[2018-03-20] MEDS ORDERED: Tamsulosin 0.4mg cap ORAL SCH (21:00)
[2018-03-21] VITALS: BP 139/65
[2018-03-21] MEDS: dilTIAZem HCl 60mg tab ORAL SCH (00:03)
[2018-03-21] MEDS: Albuterol/Ipratropium 3ml neb HHN SCH ×3 (03:00→11:14)
[2018-03-21 04:43] VITALS: BP 143/58
--- NOTE | 2018-03-21 07:47 | General Progress Note ---
Assessment/Plan Problem List: (1) Anemia ICD Codes: D64.9 - Anemia, unspecified SNOMED: 753642159 (2) Atrial fibrillation ICD Codes: I48.91 - Unspecified atrial fibrillation SNOMED: 54313815 (3) Hyperkalemia ICD Codes: E87.5 - Hyperkalemia SNOMED: 47416463 (4) Renal failure ICD Codes: N19 - Unspecified kidney failure SNOMED: 03828029 Status: stable, progressing Assessment/Plan cardiac rx/rate control gore transfuse as need follow up liver biopsy monitor volume status and renal fxn- labs pending for today cardizem/metoprolol for rate control poor prognosis snf Subjective ROS Limited/Unobtainable: No Constitutional: Reports: malaise, weakness HEENT: Reports: no symptoms Cardiovascular: Reports: no symptoms Respiratory: Reports: cough, shortness of breath Gastrointestinal/Abdominal: Reports: no symptoms Genitourinary: Reports: no symptoms Neurologic/Psychiatric: Reports: weakness Endocrine: Reports: no symptoms Hematologic/Lymphatic: Reports: anemia Allergies: Coded Allergies: No Known Allergies (Verified , 04/29/09) All Systems: reviewed and negative except above Subjective c/o generalized pain. some wheezing. agrees to short term snf. s/p lasix x 1. + gore. Objective Last 24 Hour Vital Signs Date Time Temp Pulse Resp B/P (MAP) Pulse Ox O2 Delivery O2 Flow Rate FiO2 03/21/18 07:29 88 20 99 Nasal Cannula 2.0 03/21/18 07:19 90 20 99 Nasal Cannula 2.0 03/21/18 04:43 96.4 81 16 143/58 (86) 95 96.4 03/21/18 03:27 Nasal Cannula 03/21/18 03:26 Nasal Cannula 03/21/18 00:03 78 139/65 03/21/18 00:00 98.1 78 18 139/65 (89) 96 98.1 03/20/18 23:09 Nasal Cannula 03/20/18 23:08 86 20 93 Room Air 21 03/20/18 21:00 Nasal Cannula 2.0 03/20/18 19:56 73 18 96 Nasal Cannula 2.0 28 03/20/18 19:45 71 20 92 Room Air 03/20/18 19:37 98.1 71 20 131/66 (87) 95 98.1 8/21/18 16:00 98.2 70 20 146/57 (86) 95 98.2 03/20/18 15:39 Room Air 21 03/20/18 15:35 Room Air 21 03/20/18 13:40 70 111/60 03/20/18 11:36 97.7 70 20 111/60 (77) 95 97.7 03/20/18 11:30 73 20 99 Room Air 21 03/20/18 11:19 71 20 98 Room Air 21 03/20/18 10:02 98.2 03/20/18 09:03 98.2 03/20/18 09:00 Nasal Cannula 2.0 03/20/18 08:31 71 138/67 03/20/18 08:27 98.2 71 20 138/67 (90) 97 98.2 03/20/18 07:53 71 20 99 Room Air 21 Intake and Output 03/20/18 03/21/18 19:00 07:00 Intake Total 480 ml Output Total 600 ml 650 ml Balance -120 ml -650 ml Intake Oral 480 ml Output Urine Total 600 ml 650 ml # Bowel Movements 1 Height (Feet): 5 Height (Inches): 10.00 Weight (Pounds): 117 Objective General Appearance: WD/WN, alert, thin Neck: supple Cardiovascular: normal rate, regular rhythm Respiratory/Chest: chest wall non-tender, lungs clear, normal breath sounds, no respiratory distress Abdomen: normal bowel sounds, non tender, soft, no organomegaly Edema: no edema noted Arm (L), no edema noted Arm (R), no edema noted Leg (L), no edema noted Leg (R), no edema noted Pedal (L), no edema noted Pedal (R), no edema noted Generalized 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
[2018-03-21 08:00] VITALS: BP 150/69
[2018-03-21] MEDS: HYDROcodone/Acetamin 10/325 tab ORAL PRN (08:31)
[2018-03-21] MEDS: Metoprolol Succinate XL 50mg tab ORAL SCH (08:33)
[2018-03-21] MEDS ORDERED: dilTIAZem HCl CD 180mg cap ORAL SCH (09:00)
[2018-03-21 09:02] LABS: BASOPHILS % (AUTO) 0.8 % (0.0-2.0); EOSINOPHILS % (AUTO) 0.5 % (0.0-3.0); HEMATOCRIT 29.5 % (42.0-52.0); HEMOGLOBIN 9.5 G/DL (14.2-18.0); LYMPHOCYTES % (AUTO) 15.1 % (20.0-45.0); MEAN CORPUSCULAR VOLUME 86 FL (80-99); MONOCYTES % (AUTO) 4.5 % (1.0-10.0); NEUTROPHILS % (AUTO) 79.1 % (45.0-75.0); PLATELET COUNT 440 K/UL (150-450); RED BLOOD COUNT 3.44 M/UL (4.70-6.10); RED CELL DISTRIBUTION WIDTH 18.3 % (11.6-14.8); WHITE BLOOD COUNT 14.2 K/UL (4.8-10.8)
[2018-03-21 09:20] LABS: ALANINE AMINOTRANSFERASE 18 U/L (12-78); ALBUMIN 1.5 G/DL (3.4-5.0); ALBUMIN/GLOBULIN RATIO 0.3 (1.0-2.7); ALKALINE PHOSPHATASE 108 U/L (46-116); ANION GAP 12 mmol/L (5-15); ASPARTATE AMINO TRANSFERASE 54 U/L (15-37); BILIRUBIN,TOTAL 0.4 MG/DL (0.2-1.0); BLOOD UREA NITROGEN 91 mg/dL (7-18); CALCIUM 8.9 MG/DL (8.5-10.1); CARBON DIOXIDE 18 MMOL/L (21-32); CHLORIDE 109 MMOL/L (98-107); CREATININE 3.9 MG/DL (0.55-1.30); POTASSIUM 5.6 MMOL/L (3.5-5.1); SODIUM 139 MMOL/L (136-145)
--- NOTE | 2018-03-21 10:02 | Progress Note ---
DATE: 03/20/2018 CARDIOLOGY PROGRESS NOTE SUBJECTIVE: Liver biopsy results are still pending. The outsole caser assisted me and could not give me a final report either. The patient without new complaints, but very weak and unable to get out of bed independently, but refuses to go to a rehab facility. OBJECTIVE: VITAL SIGNS: Blood pressure 138/67, pulse 71, and respiratory rate 20. Temporal wasting. LUNGS: Diminished breath sounds. CARDIAC: Regular rhythm and rate. Normal S1 and S2. ABDOMEN: Soft. No ascites. EXTREMITIES: No edema. LABORATORY AND DIAGNOSTIC DATA: White count 12.8 and hemoglobin 8.4. Potassium 5.1, BUN 73, and creatinine 3.3. Pro-natriuretic peptide has increased to 17,000. A V/Q scan was low probability for pulmonary embolus. IMPRESSION: 1. Metastatic carcinoma. 2. Acute on chronic diastolic congestive heart failure. 3. Small pleural effusions. 4. Paroxysmal atrial fibrillation. 5. Poor prognosis. PLAN: 1. Await final biopsy results. 2. Discharge planning. 3. Diuresis. 4. Protein supplement. 5. Advance directives to follow once final pathology available. Jose Low M.D. : GAGANDEEP JOB#: [id number] CC:
--- NOTE | 2018-03-21 10:49 | Urology Progress Note ---
Assessment/Plan Assessment/Plan 1. Left-sided hydronephrosis which is chronic. 2. BPH history. 3. Renal insufficiency which appears to be acute on chronic. 4. Renal cyst history. 5. Adrenal adenoma. monitor clinically monitor renal fxn gore indwelling for now cont abx f/u on bx path med/onc eval at some point cysto later voiding tria lsoon? consider retrograde study Subjective Allergies: Coded Allergies: No Known Allergies (Verified , 04/29/09) Subjective all noted, feels fair Objective Last 24 Hour Vital Signs Date Time Temp Pulse Resp B/P (MAP) Pulse Ox O2 Delivery O2 Flow Rate FiO2 03/21/18 08:33 78 150/69 03/21/18 08:33 78 150/69 03/21/18 08:00 97.7 78 21 150/69 (96) 96 97.7 03/21/18 07:29 88 20 99 Nasal Cannula 2.0 28 03/21/18 07:19 90 20 99 Nasal Cannula 2.0 24 03/21/18 04:43 96.4 81 16 143/58 (86) 95 96.4 03/21/18 03:27 Nasal Cannula 03/21/18 03:26 Nasal Cannula 03/21/18 00:03 78 139/65 03/21/18 00:00 98.1 78 18 139/65 (89) 96 98.1 03/20/18 23:09 Nasal Cannula 03/20/18 23:08 86 20 93 Room Air 21 03/20/18 21:00 Nasal Cannula 2.0 03/20/18 19:56 73 18 96 Nasal Cannula 2.0 28 03/20/18 19:45 71 20 92 Room Air 21 03/20/18 19:37 98.1 71 20 131/66 (87) 95 98.1 03/20/18 16:00 98.2 70 20 146/57 (86) 95 98.2 03/20/18 15:39 Room Air 21 03/20/18 15:35 Room Air 21 03/20/18 13:40 70 111/60 03/20/18 11:36 97.7 70 20 111/60 (77) 95 97.7 03/20/18 11:30 73 20 99 Room Air 21 03/20/18 11:19 71 20 98 Room Air 21 Intake and Output 03/20/18 03/21/18 19:00 07:00 Intake Total 480 ml Output Total 600 ml 650 ml Balance -120 ml -650 ml Intake Oral 480 ml Output Urine Total 600 ml 650 ml # Bowel Movements 1 Current Medications Medications (Trade) Dose Ordered Sig/Faizan Route PRN Reason Start Time Stop Time Status Last Admin Dose Admin Acetaminophen/ Hydrocodone Bitart ([place] 10/325) 1 tab Q4H PRN ORAL For Pain 03/20/18 09:00 03/27/18 00:59 03/21/18 08:31 Albuterol/ Ipratropium (Albuterol/ Ipratropium) 3 ml Q4HRT HHN 03/20/18 07:00 03/22/18 18:59 03/21/18 07:19 Ciprofloxacin (Cipro 250mg tab) 250 mg Q18H ORAL 03/20/18 17:00 03/21/18 16:59 Diltiazem HCl (Cardizem CD) 180 mg DAILY ORAL 03/21/18 09:00 04/20/18 08:59 03/21/18 08:33 Epoetin Robby (Procrit (for non ESRD use)) 5,000 units MON-MON-MON SUBQ 03/21/18 21:00 04/13/18 20:59 Finasteride (Proscar) 5 mg DAILY ORAL 03/20/18 09:00 04/12/18 08:59 03/21/18 08:33 Hydralazine HCl (Apresoline) 25 mg Q6H PRN ORAL SBP above 160 03/20/18 10:00 04/16/18 09:59 Metoprolol Succinate (Toprol XL) 50 mg DAILY ORAL 03/20/18 09:00 04/12/18 08:59 03/21/18 08:33 Ondansetron HCl (Zofran) 4 mg Q6H PRN IVP Nausea & Vomiting 03/20/18 10:00 04/11/18 09:59 Tamsulosin HCl (Flomax) 0.4 mg BEDTIME ORAL 03/20/18 21:00 04/12/18 20:59 03/20/18 20:53 Laboratory Tests 03/21/18 08:50: White Blood Count 14.2H, Red Blood Count 3.44L, Hemoglobin 9.5L, Hematocrit 29.5L, Mean Corpuscular Volume 86, Mean Corpuscular Hemoglobin 27.6, Mean Corpuscular Hemoglobin Concent 32.2, Red Cell Distribution Width 18.3H, Platelet Count 440, Mean Platelet Volume 4.7L, Neutrophils (%) (Auto) 79.1H, Lymphocytes (%) (Auto) 15.1L, Monocytes (%) (Auto) 4.5, Eosinophils (%) (Auto) 0.5, Basophils (%) (Auto) 0.8, Sodium Level 139, Potassium Level 5.6H, Chloride Level 109H, Carbon Dioxide Level 18L, Anion Gap 12, Blood Urea Nitrogen 91H, Creatinine 3.9H, Estimat Glomerular Filtration Rate , Glucose Level 107H, Calcium Level 8.9, Total Bilirubin 0.4, Aspartate Amino Transf (AST/SGOT) 54H, Alanine Aminotransferase (ALT/SGPT) 18, Alkaline Phosphatase 108, Total Protein 6.7, Albumin 1.5L, Globulin 5.2, Albumin/Globulin Ratio 0.3L Height (Feet): 5 Height (Inches): 10.00 Weight (Pounds): 117 Objective exam stable, gore indwelling, grossly prema BAMSHADALISON Mar 21, 2018 10:49
[2018-03-21 12:00] VITALS: BP 146/79
[2018-03-21] MEDS ORDERED: CIPRO250 MG/51 PO (15:26)
[2018-03-21] MEDS ORDERED: DILTIAZEM HCL120 MG PO (15:26)
[2018-03-21] MEDS ORDERED: DUONEB 0.5-3(2.53 ML HHN (15:27)
[2018-03-21 16:00] VITALS: BP 135/67
--- NOTE | 2018-03-21 16:14 | Diagnostic Imaging Report ---
Indication: Liver masses demonstrated on recent CT scan Technique: Informed consent obtained prior to commencement of the procedure. Procedural timeout performed. Sterile prepping and draping. AND used to localize the optimal puncture site. Local anesthesia with 1% lidocaine. A 17-gauge guide needle was directed to the periphery of one of the lesions in the left hepatic lobe. Total of 3 needle passes made, specimens placed in formalin, sent to pathology. The patient tolerated the procedure well, without immediate complication. Comparison: Reference made to CT scan of the chest abdomen pelvis dated 03/13/2018 Findings: As above Impression: Biopsy of left hepatic lobe lesion, as described, for evaluation of suspected liver metastases. Pathology report is available, describe metastatic adenocarcinoma. Special stains indicate likely GI origin. This is concordant with the imaging findings
[2018-03-21] MEDS ORDERED: Epogen (for non ESRD use) SUBQ SCH (21:00)
--- NOTE | 2018-03-21 21:58 | Consultation ---
DATE OF CONSULTATION: 03/21/2018 PODIATRIC CONSULTATION CONSULTING PHYSICIAN: Isabel Castro D.P.M. REFERRING PHYSICIAN: Justice Pereira M.D. REASON FOR CONSULTATION: Foot swelling. HISTORY OF PRESENT ILLNESS: The patient is an 88-year-old -[place] gentleman seen at bedside complaining of foot swelling. The patient denies pain or discomfort. The patient has been admitted for ascites and cirrhosis. PAST MEDICAL HISTORY: The patient's problems include atrial fibrillation, hyperkalemia, anemia and renal failure. MEDICATIONS: The patient's medications are albuterol, ipratropium, ciprofloxacin, diltiazem, epoetin, finasteride, hydralazine, hydrocodone, and acetaminophen otherwise known as [place], metoprolol, ondansetron and tamsulosin. LOWER EXTREMITY PHYSICAL EXAMINATION: VITAL SIGNS: Blood pressure 150/69, pulse 78, and temperature of 97.7 degrees. VASCULAR: His dorsalis pedis and posterior tibialis arteries were weakly palpable, 1/4 bilaterally. Capillary refill time was 5-10 seconds bilateral all digits. Feet were warm to touch. NEUROLOGIC: He has light touch and proprioceptive sensation were intact. MUSCULOSKELETAL: His foot and ankle range of motion was limited, but without pain or discomfort noted bilaterally. Muscle strength is 3-4/5 in all four quadrants bilateral feet. There is no tenderness to palpation in bilateral feet. DERMATOLOGIC: There is mild pitting edema with bilateral feet. No pre- ulcerative lesions or hyperkeratotic lesions appreciated, bilateral feet. No interspace macerations noted, bilateral feet. IMPRESSION: Lower extremity edema with renal failure, hyperkalemia, atrial fibrillation and anemia. PLAN: Reviewed foot care guidelines at length with the patient. Continue decubitus precautions and DVT precautions. The patient was encouraged to perform range of motion exercises. Thank you, Dr. Pereira, for this consultation. Isabel Castro D.P.M. DR: ANTONELLA JOB#: [id number] CC: BUTCH
--- NOTE | 2018-03-22 15:43 | Discharge Summary ---
Discharge Summary Discharge Summary _ DATE OF ADMISSION: 03/12/2018 DATE OF DISCHARGE: 03/21/2018 CONSULTANTS: Dr. Justice Castro BRIEF HOSPITAL COURSE: Patient is an 88-year-old male, with history of chronic kidney disease, obstructive uropathy, hypertension, hypertensive heart disease, and paroxysmal atrial fibrillation. He has done poorly over the past few months with almost 20 pound weight loss accompanied by increased fluid retention mostly in the lower half of the body including the abdomen. He was noted to have abnormal ultrasound that revealed nodular densities in the liver several months ago but failed to follow-up. He had decreased exercise tolerance. He denied fever or chills. Denied any melena, no bright red blood per rectum, no constipation. He was then admitted for evaluation of failure to thrive. He was given cautious fluid resuscitation. He had elevated potassium of 5.7 and was given Kayexalate. He underwent CT of the chest abdomen and pelvis that showed evidence of extensive disseminated neoplasm located predominantly below the diaphragm. There were multiple mass seen throughout the liver. Multiple nodules and mass throughout the retroperitoneum and mesenteric root with in pelvis and lower thoracic paraspinal fat and left posterior extra pleural space. Unsure as to the primary lesion. There was a mass in the left upper lung lobe. He had massive left hydronephrosis with hydroureter. He was seen by urologist. Patient has chronic left-sided hydronephrosis. Garcia catheter was inserted. On 03/15/2016, he underwent ultrasound-guided liver biopsy. He had episodes of drop in hemoglobin and received 1 unit packed RBC blood transfusion. He was given IV iron. He had episodes of tachycardia up to 140. He was eventually transferred to telemetry. He was started on IV and oral Cardizem. He was given metoprolol for rate control. No anticoagulation due to bleeding risk. VQ scan with low probability for PE. Tumor markers are notable for CA 199 of 715 and CEA 3. Liver biopsy results were pending at the time of discharge. Now, pathology results showing metastatic adenocarcinoma. He was seen by layout man. He was encouraged to use range of motion exercises. Foot care guidelines were discussed at length. He was discharged to SNF. FINAL DIAGNOSES: Metastatic adenocarcinoma of the liver Acute on chronic diastolic congestive heart failure Small pleural effusion Paroxysmal atrial fibrillation Left-sided hydronephrosis BPH Acute on chronic renal failure with obstructive component Renal cyst by history Hyperkalemia Drop in hemoglobin requiring blood transfusion Anemia Hypertensive heart disease Severe protein calorie malnutrition Metabolic acidosis Hypertensive urgency Secondary sinus tachycardia Status post ultrasound-guided liver biopsy by IR DISPOSITION: Patient was discharged to [facility]. DISCHARGE MEDICATIONS: Refer to Discharge Medication List. I have been assigned to dictate discharge summary on this account, and I was not involved in the patient's management. Dalia Hinson NP Mar 22, 2018 15:43
--- NOTE | 2018-03-23 00:50 | Cardiology Report ---
APPROVED REPORT EKG Measurement Heart Lsea956OTUP [place] 134P [id number] Sinus tachycardia Left axis deviation Nonspecific ST and T wave abnormality Abnormal ECG
--- NOTE | 2018-03-23 03:15 | Progress Note ---
DATE: 03/21/2018 CARDIOLOGY PROGRESS NOTE Late entry for 03/21/2018 SUBJECTIVE: The patient was seen and evaluated. His pathology report was reviewed and discussed with his niece, Vickie and the patient, who is made aware of the adenocarcinoma that was metastatic. All parties concurred that chemotherapy in this setting would not be beneficial. The patient will be placed on DNR/DNI protocol, but will not consider hospice care yet. His goal is to gain strength and return home. OBJECTIVE: VITAL SIGNS: Blood pressure 146/79, pulse 81, respiratory rate 20, and oxygen saturation 96% on 2 liters. HEENT: Temporal wasting. Anicteric sclerae. Oropharynx clear. NECK: Supple. LUNGS: Clear. CARDIAC: Regular rhythm and rate. Normal S1 and S2 with a fourth heart sound. ABDOMEN: Soft. EXTREMITIES: No edema. DIAGNOSTIC DATA: V/Q scan was negative. IMPRESSION: 1. Metastatic adenocarcinoma, likely of biliary or bowel primary. 2. Anemia. 3. Paroxysmal atrial fibrillation. 4. Hypertensive heart disease. 5. Severe protein-calorie malnutrition. 6. Severe functional decline. 7. Unsteady gait. 8. Muscle weakness. PLAN: [facility] and ultimately return home. No current plan for chemotherapy. Long-term consideration for hospice. Discharge medications reviewed with primary care physician. Jose Low M.D. DR: GAGANDEEP JOB#: [id number] CC:
== END 2018-03-21 16:00 | DRG 435 ==
LOC: 4E 15:21 → 2E 03-17 09:25 → 4W 03-20 06:05
PROC: 30233N1 Transfusion of Nonautologous Red Blood Cells into Peripheral Vein, Percutaneous Approach (ICD-10-PCS; principal; 2018-03-14)
PROC: 0FB03ZX Excision of Liver, Percutaneous Approach, Diagnostic (ICD-10-PCS; 2018-03-15)
DX: C78.7 Secondary malignant neoplasm of liver and intrahepatic bile duct (principal); G92 Toxic encephalopathy; E43 Unspecified severe protein-calorie malnutrition; I50.33 Acute on chronic diastolic (congestive) heart failure; G93.41 Metabolic encephalopathy; C79.9 Secondary malignant neoplasm of unspecified site; N13.39 Other hydronephrosis; I13.0 Hypertensive heart and chronic kidney disease with heart failure and stage 1 through stage 4 chronic kidney disease, or unspecified chronic kidney disease; N13.8 Other obstructive and reflux uropathy; N17.9 Acute kidney failure, unspecified; E87.2 Acidosis; Z68.1 Body mass index [BMI] 19.9 or less, adult; N18.9 Chronic kidney disease, unspecified; E11.22 Type 2 diabetes mellitus with diabetic chronic kidney disease; I48.0 Paroxysmal atrial fibrillation; J44.9 Chronic obstructive pulmonary disease, unspecified; C80.1 Malignant (primary) neoplasm, unspecified; K21.9 Gastro-esophageal reflux disease without esophagitis; N40.1 Benign prostatic hyperplasia with lower urinary tract symptoms; E87.5 Hyperkalemia; D64.9 Anemia, unspecified; I16.0 Hypertensive urgency; R00.0 Tachycardia, unspecified; E78.5 Hyperlipidemia, unspecified; I73.9 Peripheral vascular disease, unspecified; M19.90 Unspecified osteoarthritis, unspecified site; R33.8 Other retention of urine; I25.10 Atherosclerotic heart disease of native coronary artery without angina pectoris; D35.00 Benign neoplasm of unspecified adrenal gland
CPT/HCPCS: 36415; 70450; 71045; 71250; 74176; 76942; 78579; 78580; 80048; 80053; 80076; 82140; 82378; 83540; 83550; 83735; 83880; 84443; 84484; 85007; 85025; 85610; 85730; 86850; 86900; 86901; 86920; 93005; 93306; 93970; 94640; 94664; A9503; J7620